=== PATIENT | male | born 1970 | race Caucasian/White ===

== ENCOUNTER 2024-04-20 13:02 | Emergency (ER) | payer MEDICAID, SELFPAY ==
[2024-04-20 13:19] VITALS: BP 177/107; PULSE 80; TEMP 36.8; O2SAT 98; BMI 27.5
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
[2024-04-20] MEDS: 0.9 % SODIUM CHLORIDE 1,000 ML 1000 ML IV (13:53)
[2024-04-20] MEDS: ONDANSETRON PF 4 MG/2 ML VIAL IV (13:55)
[2024-04-20] MEDS: METHOCARBAMOL 1,000 MG/10 ML VIAL 1000 MG IV (13:55)
[2024-04-20] MEDS: HYDROMORPHONE HCL 1 MG/ML CARTRIDGE IVP (13:55)
[2024-04-20 14:02] VITALS: BP 138/87; PULSE 80; O2SAT 96
[2024-04-20 14:06] LABS: Basophils Percent Auto 0.4 % (0.2-2.0); Eosinophils Absolute Auto 0.3 10^3/uL (0.0-0.7); Eosinophils Percent Auto 6.6 % (0.9-7.0); Hematocrit 42.3 % (42.0-54.0); Hemoglobin 13.9 g/dL (14.0-18.0); Immature Granulocytes Abs Auto 0.02 10^3/uL (0.00-0.03); Immature Granulocytes Pct Auto 0.4 % (0.0-0.5); Lymphocytes Percent Auto 20.9 % (20.5-60.0); Mean Corpuscular HGB Conc 32.9 g/dL (29.9-35.2); Mean Corpuscular Hemoglobin 29.8 pg (25.9-34.0); Mean Corpuscular Volume 90.8 fL (80.0-94.0); Mean Platelet Volume 9.9 fL (9.5-13.5); Monocytes Absolute Auto 0.3 10^3/uL (0.3-0.8); Neutrophils Absolute Auto 3.1 10^3/uL (1.4-6.5); Neutrophils Percent Auto 65.7 % (43.0-75.0); Platelet Count 173 10^3/uL (150-450); Red Blood Count 4.66 10^6/uL (4.70-6.10); Red Cell Distribution Width 14.3 % (11.0-15.0); White Blood Count 4.7 10^3/uL (4.0-11.0)
[2024-04-20 14:19] LABS: INR 0.98; Prothrombin Time 10.4 sec (9.0-11.6)
[2024-04-20 14:25] LABS: Alanine Aminotransferase 35 U/L (16-63); Albumin Level 3.5 g/dL (3.4-5.0); Alkaline Phosphatase 62 U/L (46-116); Anion Gap 12.2; Aspartate Amino Transferase 22 U/L (15-37); BUN Creatinine Ratio 19.4; Bilirubin Total 0.5 mg/dL (0.2-1.0); Calcium 8.6 mg/dL (8.5-10.1); Carbon Dioxide 25.6 mmol/L (21.0-32.0); Chloride 102 mmol/L (98-107); Estimated GFR (African America >60 (>=60); Estimated GFR (Non-African Ame >60 (>=60); Globulin 3.6 g/dL; Glucose 99 mg/dL (74-106); Potassium 3.8 mmol/L (3.5-5.1); Sodium 136 mmol/L (136-145); Total Protein 7.1 g/dL (6.4-8.2)
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
[2024-04-20 15:30] VITALS: BP 128/80; PULSE 76; O2SAT 97
== END 2024-04-20 15:35 | disposition home or self-care (01) ==
PROVIDERS: Physician Assistant; Emergency Provider Student in an Organized Health Care Education/Training Program; PCP Family Medicine
DX: R10.9 Unspecified abdominal pain (principal); S20.212A Contusion of left front wall of thorax, initial encounter; V19.9XXA Pedal cyclist (driver) (passenger) injured in unspecified traffic accident, initial encounter
CPT/HCPCS: 36415; 71260; 74177; 80053; 85025; 85610; 96374; 96375; 99285; J1170; J2405; J2800; Q9967

== ENCOUNTER 2024-06-27 14:37 | Outpatient (OUT) | payer MEDICAID, SELFPAY ==
--- NOTE | 2024-06-27 14:44 | XR_ITS ---
The [address] [address] Patient Name: CORNELIUS ROBERTS MRN: [id number] date: 1970 Sex: M Assigned Patient Location: LAB Current Patient Location: LAB Accession/Order Number: [id number] Exam Date: 06/27/2024 14:51 Report Date: 06/27/2024 15:03 At the request of: VANGEI BAEZ Procedure: XR chest 2V EXAM: XR chest 2V HISTORY: Cough, Abnormal Chest Sounds, Asthma COMPARISON: None. TECHNIQUE: Upright PA and lateral chest x-ray FINDINGS: The heart is not enlarged and the vasculature is not distended. No acute infiltrate, effusion or pneumothorax is identified. Mild flattening of the hemidiaphragms suggest COPD. The osseous structures are grossly intact. XR/XR chest 2V IMPRESSION: No apparent acute infiltrate or evidence of cardiac decompensation. Comparison with a previous study may be helpful in confirming the chronicity of these findings. Electronically authenticated by: MONA ESCAMILLA Date: 06/27/2024 15:03
--- OUTSIDE RECORDS SUMMARY | 2024-06-27 15:00 | XMS_ITS | CCD ---
Author Organization [facility] Care Team Providers Care Store Gift Wrap Associate Name Role Phone Kulwant OCHOA Primary Care Physician [phone] Sendy Murray I Unavailable Unavailable Kulwant Ochoa Primary Care Unavailable Ty Osborne Admitting Unavailab Peggy Nix Consulting Unavailable Ty Osborne Attending Unavailab Ashley Todd Consulting Unavailable Janae Arce Consulting Unavailable Savita Grove Consulting Unavailable Isabela High Consulting Unavailable Ashia Chadwick Consulting Unavailable Chaparrita Piper Consulting Unavailable Julián Singletary Consulting Unavailable Sendy Olivo Consulting Unavailable Vaishali Mei Consulting Unavailable Bart Jackson Consulting Unavailable Mitchell Stewart Consulting UnavailDonnie Mejia Consulting Unavailable Elizabeth Esposito Consulting Unavailable Renny Hernandez Consulting Unavailable Meenakshi Castro Consulting UnavailTarun Berg Consulting Unavailable Sridhar Warner Consulting Unavailable Donna Ledesma Consulting Unavailable Inessa Belcher Consulting Unavailable Iftikhar Mijares Consulting Unavailable Desmond Wiley Consulting Unavailable Shaggy Gupta Consulting Unavailable Ashley Nunez Consulting Unavailable Meng Humphries Consulting Unavailable Hernandez Vazquez Consulting Unavailab Aryan Neves Consulting Unavailable Ralf Rios Consulting Unavailable Manjula Hussein Consulting Unavailable Adis Pollard Consulting Unavailable Jaquelin Galicia Consulting Unavailable Gui Yang Consulting Unavailable Lalo Chacko Consulting Unavailable Clemencia Su Consulting Unavailable Seng Foster Consulting Unavailable Thelma Piedra Consulting Unavailable Rebeca George Consulting Unavailable Martha Flor Consulting Unavailable Robert Zazueta Consulting Unavailable Shashi Brennan Consulting Unavailable Bladimir Anaya Consulting Unavailable Delmar Escamilla Consulting Unavailable Regan Rios Consulting Unavailable Yoanna Huff Consulting Unavailable LLC, GENERIC Primary Care Physician UnavailLeandra Chaudhari Attending Unavailable Leandra Lancaster Admitting Unavailable Lion Yan Attending Unavailable Leandra Lancaster Attending Unavailable Allergies Allergy Classification Reported Allergen(s) Allergy Type Date of Onset Reaction(s) Facility (9 sources) Bee/Wasp/Ant venom; Translations: [Bee Stings] Drug allergy [facility] Medications Current Medications Medication Drug Class(es) Dates Sig (Normalized) Sig (Original) [id number] 200 actuat albuterol 0.09 mg/actuat metered dose inhaler (5 sources) beta2-Adrenergic Agonist Start: 06-01-2024 take 1 puff(s) by inhalation every four to six hours Albuterol Sulfate Active 2 PUFF INHALATION EVERY 4-6 HOURS 8.5 June 01, 2024 10:49am Start: 06-01-2024 End: 06-01-2024 Albuterol Sulfate Discontinu ed INHALATION June 01, 2024 12:00am June 01, 2024 10:50am Start: 04-06-2020 take 1 dose by inhal ation every six hours ProAir HFA 90 mcg/inh inhalation aerosol 2 puff(s), Inhalation, q6hr for wheezing, 1 EA, Refill(s) 3, [facility], 165, cm, 04/05/20 9:03:00 EDT, Height/Length Dosing, 77.1, kg, 04/05/20 9:03:00 EDT, Weight Dosing Start Date: 04/06/20 Status: Ordered Albuterol (Eqv-ProAir HFA) 90 mcg/inh inhalation aerosol (4 sources) Start: 08-04-2022 take 2 puff(s) by inhalation every six hours Albuterol (Eqv-ProAir HFA) 90 mcg/inh inhalation aerosol 2 puff(s), Inhalation, q6hr Shortness of breath or wheezing, 6.7 gm, Refill(s) 5, [facility], 165, cm, 08/04/22 9:32:00 EST, Height/Length Dosing, 72.4, kg, 08/04/22 9:32:00 EST, Weight Dosing Start Date: 08/04/22 Status: Ordered Albuterol (Eqv-Proventil HFA) 90 mcg/inh inhalation aerosol (4 sources) Start: 07-30-2021 take 2 puff(s) by inhalation every six hours Albuterol (Eqv-Proventil HFA) 90 mcg/inh inhalation aerosol = 2 puff(s), Inhalation, q6hr, # 6.7 gm, Refills(s) 0, Pharmacy: [facility], 165, cm, 07/30/21 11:09:00 EST, Height/Length Dosing, 73.2, kg, 07/30/21 11:09:00 EST, Weight Dosing Start Date: 07/30/21 Status: Ordered amoxicillin 500 mg oral capsule (1 source) Penicillin-class Antibacterial Start: 05-21-2023 take 1 capsule by mouth every twelve hours amoxicillin 500 mg Cap 500 mg = 1 cap(s), Oral, q12hr, # 20 cap(s), Refills(s) 0, Pharmacy: [facility], 162, cm, 05/21/23 12:44:00 EDT, Height/Length Dosing, 74, kg, 05/21/23 12:44:00 EDT, Weight Dosing Start Date: 05/21/23 Status: Ordered Azithromycin (1 source) Macrolide Antimicrobial Start: 06-01-2024 Azithromycin Active 0 PO daily 6 June 01, 2024 12:00am Take 2 on day 1 and then take 1 for the next 4 days (days 2-5) azithromycin 250 mg Tab 5-day Dose Pack (Z-Jordy) (2 sources) Start: 06-23-2024 End: 06-28-2024 azithromycin 250 mg Tab 5-day Dose Pack (Z-Jordy) = 1 packet(s), Oral, As Directed, as directed on package labeling, X 5 day(s), # 6 tab(s), Refills(s) 0, Pharmacy: [facility], 162, cm, 06/23/24 14:38:00 EST, Height/Length Dosing, 69, kg, 06/23/24 14:38:00 EST, Weight Dosing Start Date: 06/23/24 Stop Date: 06/28/24 Status: Ordered benzonatate 200 mg oral capsule (1 source) Non-narcotic Antitussive Start: 06-01-2024 take 200 mg by mouth three times daily Benzonatate Active 200 MG PO Three times daily 30 June 01, 2024 12:00am cyclobenzaprine hydrochloride 10 mg oral tablet (4 sources) Muscle Relaxant Start: 02-26-2021 take 1 tablet by mouth three times daily as needed for muscle spasms cyclobenzaprine 10 mg Tab 10 mg = 1 tab(s), Oral, TID, PRN for spasm, # 30 tab(s), Refills(s) 0, Pharmacy: [facility], 165, cm, 02/26/21 14:51:00 EDT, Height/Length Dosing, 73.2, kg, 02/26/21 14:51:00 EDT, Weight Dosing Start Date: 02/26/21 Status: Ordered hydroCHLOROthiazide / Lisinopril (6 sources) Thiazide Diuretic, Angiotensin Converting Enzyme Inhibitor Start: 08-04-2022 take 1 tablet by mouth once daily Prinzide 10 mg-12.5 mg oral tablet 1 tab(s), Oral, Daily, 90 tab(s), Refill(s) 3, [facility], 165, cm, 08/04/22 9:32:00 EST, Height/Length Dosing, 72.4, kg, 08/04/22 9:32:00 EST, Weight Dosing Start Date: 08/04/22 Status: Ordered Start: 06-30-2014 take 1 tablet by riccardo th once daily Prinzide 10 mg-12.5 mg oral tablet 1 tab(s), Oral, Daily, Refill(s) 0, diuretic/water pill Start Date: 06/30/14 Status: Ordered Lidocaine 2% Viscous (1 source) Start: 05-21-2023 apply 0.1 g topically every four hours Lidocaine 2% Viscous 0.1 gm, 5 mL, Topical, q4hr, 100 mL, Refill(s) 0, [facility], 162, cm, 05/21/23 12:44:00 EDT, Height/Length Dosing, 74, kg, 05/21/23 12:44:00 EDT, Weight Dosing Start Date: 05/21/23 Status: Ordered methylPREDNISolone 4 mg oral tablet (2 sources) Corticosteroid Start: 08-04-2022 End: 08-10-2022 Medrol 4 mg Tab = 1 packet(s), Oral, As Directed, as directed on package labeling, X 6 day(s), # 21 tab(s), Refills(s) 0, Pharmacy: [facility], 165, cm, 08/04/22 9:32:00 EST, Height/Length Dosing, 72.4, kg, 08/04/22 9:32:00 EST, Weight Dosing Start Date: 08/04/22 Stop Date: 08/10/22 Status: Ordered Start: 11-18-2021 End: 11-24-2021 Medrol 4 mg Tab = 1 packet(s ), Oral, As Directed, as directed on package labeling, X 6 day(s), # 21 tab(s), Refills(s) 0, Pharmacy: [facility], 165, cm, 11/18/21 14:22:00 EDT, Height/Length Dosing, 73.7, kg, 11/18/21 14:22:00 EDT, Weight Dosing Start Date: 11/18/21 Stop Date: 11/24/21 Status: Ordered omeprazole 40 mg delayed release oral capsule (3 sources) Proton Pump Inhibitor Start: 07-30-2020 take 1 capsule by mouth twice daily omeprazole 40 mg Cap-DR 40 mg = 1 cap(s), Oral, BID, # 60 cap(s), Refills(s) 2, Pharmacy: [facility], 165, cm, 07/30/20 12:46:00 EST, Height/Length Dosing, 75.8, kg, 07/30/20 12:46:00 EST, Weight Dosing Start Date: 07/30/20 Status: Ordered omeprazole 40 mg Cap-DR (1 source) Start: 07-30-2020 take 1 capsule by mouth twice daily omeprazole 40 mg Cap-DR 40 mg = 1 cap(s), Oral, BID, # 60 cap(s), Refills(s) 2, Pharmacy: [facility], 165, cm, 07/30/20 12:46:00 EST, Height/Length Dosing, 75.8, kg, 07/30/20 12:46:00 EST, Weight Dosing Start Date: 07/30/20 Status: Ordered predniSONE 50 mg oral tablet (3 sources) Start: 06-23-2024 End: 06-28-2024 take 1 tablet by mouth once daily at mealtime predniSONE 50 mg Tab 50 mg = 1 tab(s), Oral, Daily, with food or milk, X 5 day(s), # 5 tab(s), Refills(s) 0, Pharmacy: [facility], 162, cm, 06/23/24 14:38:00 EST, Height/Length Dosing, 69, kg, 06/23/24 14:38:00 EST, Weight Dosing Start Date: 06/23/24 Stop Date: 06/28/24 Status: Ordered Start: 06-01-2024 take 0.5 tablet by m outh once daily Prednisone Active 10 MG PO daily June 01, 2024 12:00am Take 40 mg for 2 days, 30 mg for 2 days, 20 mg for 2 days, 10 mg for 2 days, 1/2 tablet for 2 days Ventolin HFA 90 mcg/inh Aerosol-Adpt (2 sources) Start: 06-23-2024 take 2 puff(s) by inhalation once for wheezing Ventolin HFA 90 mcg/inh Aerosol-Adpt 2 puff(s), Inhalation, Once for wheezing, 18 gram, Refill(s) 0, [facility], 162, cm, 06/23/24 14:38:00 EST, Height/Length Dosing, 69, kg, 06/23/24 14:38:00 EST, Weight Dosing Start Date: 06/23/24 Status: Ordered Completed/Discontinued Medications Medication Drug Class(es) Dates Sig (Normalized) Sig (Original) doxepin hydrochloride 10 mg oral capsule (1 source) Tricyclic Antidepressant Start: 10-17-2023 End: 06-01-2024 take 10 mg by mouth once daily at bedtime Doxepin Discontinued 10 MG PO Daily at bedtime 15 October 17, 2023 1:00am June 01, 2024 10:22am doxycycline hyclate 100 mg oral tablet (7 sources) Tetracycline-class Drug Start: 10-17-2023 End: 06-01-2024 take 100 mg by mouth twice daily Doxycycline Hyclate Discontinued 100 MG PO Twice daily 07 21October 17, 2023 1:00am June 01, 2024 10:22am Start: 08-04-2022 take 1 capsule by [facility] twice daily doxycycline hyclate 100 mg Cap 100 mg = 1 cap(s), Oral, BID, # 20 cap(s), Refills(s) 0, Pharmacy: [facility], 165, cm, 08/04/22 9:32:00 EST, Height/Length Dosing, 72.4, kg, 08/04/22 9:32:00 EST, Weight Dosing Start Date: 08/04/22 Status: Ordered Start: 11-18-2021 take 1 capsule by [facility] twice daily doxycycline hyclate 100 mg Cap 100 mg = 1 cap(s), Oral, BID, # 20 cap(s), Refills(s) 0, Pharmacy: [facility], 165, cm, 11/18/21 14:22:00 EDT, Height/Length Dosing, 73.7, kg, 11/18/21 14:22:00 EDT, Weight Dosing Start Date: 11/18/21 Status: Ordered escitalopram 10 mg oral tablet (1 source) Serotonin Reuptake Inhibitor Start: 10-17-2023 End: 06-01-2024 take 10 mg by mouth once daily Escitalopram Oxalate Discontinued 10 MG PO Daily October 17, 2023 1:00am June 01, 2024 10:23am fenofibrate 145 mg oral tablet (1 source) Peroxisome Proliferator Receptor alpha Agonist Start: 10-17-2023 End: 06-01-2024 take 145 mg by mouth once daily in the evening Fenofibrate Nanocrystallized Discontinued 145 MG PO Every evening October 17, 2023 1:00am June 01, 2024 10:23am folic acid 1 mg oral tablet (1 source) Start: 10-17-2023 End: 06-01-2024 take 1 mg by mouth once daily Folic Acid Discontinued 1 MG PO Daily October 17, 2023 1:00am June 01, 2024 10:23am ProAir HFA 90 mcg/inh inhalation aerosol (1 source) Start: 04-06-2020 take 1 dose by inhalation every six hours ProAir HFA 90 mcg/inh inhalation aerosol 2 puff(s), Inhalation, q6hr for wheezing, 1 EA, Refill(s) 3, [facility], 165, cm, 04/05/20 9:03:00 EDT, Height/Length Dosing, 77.1, kg, 04/05/20 9:03:00 EDT, Weight Dosing Start Date: 04/06/20 Status: Ordered rOPINIRole 0.5 mg oral tablet (1 source) Nonergot Dopamine Agonist Start: 10-17-2023 End: 06-01-2024 take 0.5 mg by mouth twice daily Ropinirole Discontinued 0.5 MG PO Twice daily October 17, 2023 1:00am June 01, 2024 10:23am thiamine 100 mg oral tablet (1 source) Start: 10-17-2023 End: 06-01-2024 take 100 mg by mouth twice daily Thiamine Hcl (Vitamin B1) Discontinued 100 MG PO Twice daily October 17, 2023 1:00am June 01, 2024 10:23am Problems Active Problems Problem Classification Problem Date Documented Date Episodic/Chronic Alcohol-related disorders (2 sources) Alcohol abuse, uncomplicated; Translations: [Alcohol abuse] Onset: 10-12-2023 10-26-2023 Chronic Anxiety disorders (2 sources) Generalized anxiety disorder; Translations: [Generalized anxiety disorder] Onset: 10-12-2023 10-26-2023 Chronic Asthma (13 sources) Asthma; Translations: [Exacerbation of asthma] Onset: 06-23-2024 10-27-2013 Chronic Disorders of lipid metabolism (2 sources) Pure hyperglyceridemia; Translations: [Hypertriglyceridemia ] Onset: 10-12-2023 10-26-2023 Chronic Essential hypertension (9 sources) Hypertensive disorder; Translations: [Essential hypertension] Onset: 08-04-2022 05-15-2011 Chronic Fever of unknown origin (1 source) Fever; Translations: [Fever, unspecified] Onset: 06-23-2024 Episodic Headache; including migraine (8 sources) Tension-type headache 02-09-2020 Chronic Mood disorders (2 sources) Major depressive disorder, recurrent severe without psychotic features; Translations: [Severe recurrent major depression without psychotic features] Onset: 10-12-2023 10-26-2023 Chronic Mood disorders (1 source) Mood disorders; Translations: [Depression, unspecified] Onset: 10-12-2023 Open wounds of extremities (2 sources) Laceration without foreign body of left wrist, initial encounter; Translations: [Self inflicted lacerations to wrist] Onset: 10-12-2023 10-26-2023 Episodic Open wounds of extremities (2 sources) Laceration without foreign body of right wrist, initial encounter; Translations: [Self inflicted lacerations to wrist] Onset: 10-12-2023 10-26-2023 Episodic Other connective tissue disease (8 sources) Disorder of rotator cuff 11-06-2015 Episodic Other injuries and conditions due to external causes (1 source) Injury of upper arm; Translations: [Other injury of muscle, fascia and tendon of other parts of biceps, right arm, initial encounter] Onset: 02-09-2022 Episodic Other injuries and conditions due to external causes (7 sources) Muscle and tendon injury 02-09-2022 Episodic Other nutritional; endocrine; and metabolic disorders (1 source) Overweight in adulthood with body mass index of 25 or more but less than 30; Translations: [Body mass index (BMI) 26.0-26.9, adult] Onset: 02-09-2022 Episodic Other upper respiratory infections (3 sources) Acute maxillary sinusitis; Translations: [Acute maxillary sinusitis, unspecified] Onset: 06-23-2024 06-01-2024 Episodic Pneumonia (except that caused by tuberculosis or sexually transmitted disease) (10 sources) Pneumonia; Translations: [Pneumonia, unspecified organism] Onset: 11-18-2021 Episodic Residual codes; unclassified (1 source) Tobacco user; Translations: [Tobacco use] Onset: 02-09-2022 Episodic Spondylosis; intervertebral disc disorders; other back problems (16 sources) Degeneration of intervertebral disc; Translations: [Lumbar spondylosis with myelopathy] 11-06-2015 Chronic Substance-related disorders (5 sources) Smoker; Translations: [Other psychoactive substance abuse, uncomplicated] Onset: 10-12-2023 10-11-2023 Chronic Comment on above: Added secondary to d ocumentation in Social History. Suicide and intentional self-inflicted injury (2 sources) Intentional self-harm by unspecified sharp object, initial encounter; Translations: [Intentionally harming self (event)] Onset: 10-11-2023 Episodic Past or Other Problems Problem Classification Problem Date Documented Da te Episodic/Chronic Unclassified (1 source) Exposure to 2019 novel coronavirus; Translations: [Contact with and (suspected) exposure to COVID19] Results Test Name Value Interpretation Reference Range Facility Ambulatory Visit Summaryon 1 08-23-2023 Ambulatory Visit Summary Ambulatory Visit Summary CORNELIUS ROBERTS :1970 Visit Date:06/23/2024 Ambulatory Visit Instructions Your Diagnosis Cough with fever Wheezing on inspiration Acute pharyngitis Exacerbation of asthma Your Care Team Attending Physician - Tnony SALAZAR, Bing Primary Care Physician - MAGALIS, GENERIC This Is Your Medications List albuterol (Albuterol (Eqv-ProAir HFA) 90 mcg/inh inhalation aerosol) albuterol (Ventolin HFA 90 mcg/inh Aerosol-Adpt) azithromycin (azithromycin 250 mg Tab 5-day Dose Pack (Z-Jordy)) predniSONE (predniSONE 50 mg Tab) Procedures Performed Injection of facet joint using fluoroscopic guidance (10/09/2015), Appendectomy, groin surgey as a child, kidney surgery as a child. Discharge Vitals Temperature (Tympanic) 37 ???C Heart Rate (Peripheral) 104 Blood Pressure 120/74 Height 162 cm Height 64 in Weight 69 kg Weight 151.8 lb BMI 26.29 Medications What How Much When Why Instructions New azithromycin (azithromycin 250 mg Tab 5-day Dose Pack (Z-Jodry)) 1 Packets By Mouth As Directed Cough with fever Wheezing on inspiration Acute pharyngitis Exacerbation of asthma Duration: 5 Days as directed on package labeling Pickup at [facility] New predniSONE (predniSONE 50 mg Tab) 1 Tablets By Mouth Every day Cough with fever Wheezing on inspiration Acute pharyngitis Exacerbation of asthma Duration: 5 Days with food or milk Pickup at [facility] Changed albuterol (Albuterol (Eqv-ProAir HFA) 90 mcg/ inh inhalation aerosol) 2 Puffs Inhalation Every 6 hours as needed for Shortness of breath or wheezing Changed albuterol (Ventolin HFA 90 mcg/ inh Aerosol-Adpt) 2 Puffs Inhalation Once as needed for for wheezing Cough with fever Wheezing on inspiration Acute pharyngitis Exacerbation of asthma Pickup at [facility] Pharmacy Information [facility]: [address] [place], [place] [id number] [phone] Medications and Immunizations Administered Given DuoNeb 2.5 mg-0.5 mg/3 mL Soln-Inh, 3 mL, NEB. For: Wheezing on inspiration Allergies Bee Stings Problems Ongoing - Any problem that you are currently receiving treatment for. 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 DDD (degenerative disc disease) Disorder of rotator cuff Patient Survey You may receive a survey via text or e-mail asking about your office visit. Please share your experience with us by completing your survey. We appreciate your feedback and thank you for choosing us for your care. [facility] Family Medicine Office/Clini c Noteon 06-23-2024 Family Medicine Office/Clinic Note Family Medicine Office/Clinic Note Chief Complaint cough, congestion HPI Staff 53 year old male presents with cough, chills, body aches, sinus congestion, sore throat, diarrhea for the past 2-3 weeks mucinex, ibuprofen, dayquil, inhaler History of Present Illness I have reviewed and verified the staff HPI to be accurate for this encounter. Portions of this record have been created with voice recognition software. Occasional wrong-word or ???[id number]??? substitutions may have occurred due to the inherent limitations of voice recognition software. 3-year-old male presents with complaints of cough, chills, body aches, sinus congestion, sore throat and some diarrhea for the past 2 to 3 weeks. He reports he did COVID test at home that were negative. His most bothersome symptoms are sore throat, wheezing, chills and cough that do not seem to be improving. He does use an albuterol inhaler that he needs refilled. He has been using ibuprofen, Mucinex, DayQuil and his inhaler for his symptoms without much relief. He is agreeable to strep testing and chest x-ray today. Review of Systems PHQ Score Initial Depression Screen Score: 0 SCORE ROS negative unless otherwise stated in HPI. Physical Exam Vitals & Measurements T: 37 ???C(Tympanic) HR: 104(Peripheral) BP: 120/74 SpO2: 97% HT: 64 in HT: 162 cm WT: 69 kg WT: 151.8 lb BMI: 26.29 General: Well developed, well nourished, in no acute distress ill-appearing not toxic Eyes: not assessed Ears: No deformity or lesion of external ear. Canals and TM appear normal bilaterally. TM???s intact, not inflamed, with normal light reflex. Hearing grossly normal to conversational speech Nose: mild nasal mucosa inflammation and edema Mouth: Mucous membranes moist. Normal oropharynx, and posterior pharynx injected without lesions or exudates. Tongue normal tonsils 2+ Neck: no adenopathy Lungs: Normal respiratory effort however wheezes heard throughout along with moist cough respiratory rate 18 Cardio: regular rate and rhythm, no murmur tachycardic at 104 Abdomen: not assessed Musculoskeletal: not assessed Extremity: not assessed Neurologic: Grossly normal Skin: No rashes, ulcerations, or suspicious lesions Mental Status: Alert and oriented x3. Normal mood and affect Assessment/Plan Based on history and symptoms and how he presents today I would like to do a rapid strep due to his complaint of severe sore throat that has been lasting for almost 2 weeks. We will also do a chest x-ray due to the level of wheezing and cough he has had, history of asthma. Rapid strep was negative and we will send strep screen culture per protocol. Chest x-ray was also negative for pneumonia but I will treat his exacerbation of asthma with azithromycin Z-Jordy, prednisone 50 mg daily x 5 days as well as refilling his albuterol inhaler. He states he is in the process of finding another PCP so we will have our front and staff help him with finding a new PCP as he will need to have a primary care physician to monitor his chronic conditions. Patient verbalized understanding and agreement with this plan. 1. Exacerbation of asthma (J45.901: Unspecified asthma with (acute) exacerbation) Please follow-up with your primary care provider in 3 to 5 days. Contact their office tomorrow morning to schedule follow-up appointment. You were seen and evaluated today in regards to cough and wheezing. You had wheezing on exam today. Discussed with you in regards to treatment for bronchitis with azithromycin 500 mg p.o. today followed by 250 mg for the next 4 days. Prednisone, steroid 50 mg daily x 5 days take as directed. Continue albuterol inhaler, 2 puffs every 4-6 hours as needed for wheezing. Cough, and viral symptoms may last anywhere form 7-14 days, or linger longer. Continue to monitor. If you develop high spiking fever, shortness of breath ,or chest pain, you should go to the emergency department for reevaluation. You may return if needed. Ordered: albuterol, 2 puff(s), Inhalation, Once for wheezing, 18 gram, Refill(s) 0, [facility], 162, cm, 06/23/24 14:38:00 EST, Height/Length Dosing, 69, kg, 06/23/24 14:38:00 EST, Weight Dosing azithromycin, = 1 packet(s), Oral, As Directed, as directed on package labeling, X 5 day(s), # 6 tab(s), Refills(s) 0, Pharmacy: [facility], 162, cm, 06/23/24 14:38:00 EST, Height/Length Dosing, 69, kg, 06/23/24 14:38:00 EST, Weight Dosing predniSONE, 50 mg = 1 tab(s), Oral, Daily, with food or milk, X 5 day(s), # 5 tab(s), Refills(s) 0, Pharmacy: [facility], 162, cm, 06/23/24 14:38:00 EST, Height/Length Dosing, 69, kg, 06/23/24 14:38:00 EST, Weight Dosing 2. Acute pharyngitis (J02.9: Acute pharyngitis, unspecified) Rapid strep -. Given exam will send strep cx to confirm. No news is good news, if you do not hear from us, strep culture was Negative. If any GAS growth, will rx appropriate antibiotic and notify you. Discussed otherwise consistent with viral illn (more content not included)... [facility] Comment on above: Result Comment: Elec tronically Signed By: Tonny SALAZAR, Bing\.br\Date and Time Signed: 06/23/24 20:41 EST Patient Letter FTon 2023 Patient Letter FT Patient Letter [facility] [address], [place] [address] [id number] June 23, 2024 [place] [id number] : 1970 Please excuse CORNELIUS ROBERTS from work . Date and/or Time of Absence: From: 06/23/24 To: 06/23/24 May return to work on: 06/24/24 if fever free without use of fever reducing medication and has taken 2 doses of antibiotics. Restrictions: None Comments: Please excuse due to an acute illness. Provider Signature: MARTIN Aguilar Nurse Practitioner [facility] [address] [place] [address] [facility] XR Chest 2 [facility] XR Chest 2 Views Exam Date/Time: 06/23/2024 15:06 EST Reason for Exam: Cough Report IMPRESSION: NO EVIDENCE OF ACTIVE CARDIOPULMONARY DISEASE. EXAM: XR Chest 2 Views DATE: 06/23/2024 3:01 PM CLINICAL HISTORY: Cough. COMPARISON: None available TECHNIQUE: Upright PA and lateral radiographs of the chest were obtained. FINDINGS: There is no significant pulmonary infiltrate, cardiomegaly, pleural effusion, vascular congestion, pneumothorax, or displaced fractures identified. Ordering Provider: Leandra Lancaster FINAL REPORT Dictated: 06/23/2024 3:14 pm Sabas De León MD Signed (Electronic Signature): 06/23/2024 3:14 pm Signed by: Sabas De León MD Transcribed by: URBANO Technologist: SALAZAR Technical Comments Radiation Dose: Ka,r in mGy = na DAP = na [facility] No Panel InformationOrdered By: Eleanor Koehler on 06-01-2024 Quick Strep (POC) [facility] EMS Documentationon 10-18-19 EMS Documentation Please click on link to see report [facility] Comment on above: Result Comment: Miss ing Attachment - attachment exceeds size limitation [id number] Can be viewed in source system Triglycerideson 10-16-2023 Triglyceride [Mass/Vol] 159 mg/dL High 35-149 [facility] Comment on above: Result Comment: TRIG ATP III CLASSIFICATION TRIG less than 150 mg/dL Normal TRIG 150-199 mg/dL Borderline high TRIG 200-500 mg/dL High TRIG greater than 500 mg/dL Very high Standard traceable to the Center for Disease Conrtrol and Prevention (CDC) test method. PERFORMED BY: [place] [address] PATHOLOGIST IT SENIOR ANALYST VONNIE CHARLES M.D. Performed By: #### T RIG #### [place] [address] [place] A1C with Estimated Average G luon 10-12-2023 Glucose [Mass/Vol] 105 mg/dL Normal [facility] Comment on above: Order Comment: Comme nt ok to use previously drawn blood Result Comment: PERF ORMED BY: [place] [address] PATHOLOGIST IT SENIOR ANALYST VONNIE CHARLES M.D. Performed By: #### A 1C [facility] eA #### [address] HbA1c (Bld) [Mass fraction] 5.3 % Normal 4.3-5.6 [facility] Comment on above: Order Comment: Comme nt ok to use previously drawn blood Result Comment: Incr eased risk for diabetes: 5.7 - 6.4 diabetes: >6.4 glycemic control for adults with diabetes: <7.0 Performed By: #### A 1C [facility] eA #### [place] [address] [place] ECG 12 lead ECGon 10-12-2023 ECG 12 lead ECG [facility] [place] [address] Electrocardiograph Report Signed Patient: Cornelius Rboerts MR#: [id number] : 1970 Acct:[id number] Age/Sex: 52 / M ADM Date: 10/12/23 Loc: Room: 2V2073-3 Type: ADM IN Attending Dr: Ty Osborne MD Ordering Provider: Ty Osborne MD Date of Service: 10/12/23 ECG/ECG 12 lead ECG: use of antipsychotics Copies to: Test Reason : Blood Pressure : / mmHG Vent. Rate : 104 BPM Atrial Rate : 104 BPM P-R Int : 140 ms QRS Dur : 084 ms QT Int : 326 ms P-R-T Axes : 069 064 081 degrees QTc Int : 428 ms Sinus tachycardia Nonspecific ST and T wave abnormality Abnormal ECG No previous ECGs available Confirmed by GEOVANNA OLIVEIRA MD, FACC ([id number]) on 10/12/2023 3:41:18 PM Referred By: Electronically Signed By:GEOVANNA OLIVEIRA MD, FACC Transcribed By: MUS Signed By Geovanna Oliveira MD, FACC 10/12/23 1541 [facility] ED Clinical Summaryon 2023 ED Clinical Summary (Inserted Image. Pia ble to display) [place] [address] ED Clinical Summary Person Information Name: CORNELIUS ROBERTS [place] Age: 52 Years : 1970 Sex: Male Language: Yemeni PCP: Kulwant OCHOA DO Marital Status: Single Visit Id: Visit Reason: Psychiatric problem; Trauma - major; Suicidal ideation; Multiple lacerations; SI Speciality: Acuity: 2 Enc Type: Emergency Med Service: Emergency Arrival: 10/11/2023 19:13:19 Discharge: 10/12/2023 02:05:19 LOS: 000 06:52 Checkin: 10/11/2023 19:13:19 Checkout: 10/12/2023 02:05:19 Dispo Type: [facility] EVENTS: Event Name Event Status Request Date/Time Start Date/Time Complete Date/Time Arrive Complete 10/11/2023 19:13:19 10/11/2023 19:13:19 10/11/2023 19:13:19 Document Home Meds Request 10/11/2023 19:13:19 Triage Complete 10/11/2023 19:13:19 10/11/2023 19:22:36 10/11/2023 19:22:36 Bed Assign Complete 10/11/2023 19:16:51 10/11/2023 19:16:51 10/11/2023 19:16:51 Dr Exam Complete 10/11/2023 19:16:51 10/11/2023 19:30:41 10/11/2023 19:30:41 RN Exam Complete 10/11/2023 19:16:51 10/11/2023 19:39:05 10/11/2023 19:39:05 Patient Care Complete 10/11/2023 19:18:53 10/11/2023 22:48:50 Trauma III Request 10/11/2023 19:20:47 EKG Complete 10/11/2023 19:22:50 10/11/2023 19:24:01 Registration Complete 10/11/2023 19:30:41 10/11/2023 20:47:20 10/11/2023 20:47:20 Consult Request 10/11/2023 19:31:17 Pending Labs Complete 10/11/2023 19:31:17 10/11/2023 23:01:03 Lab Complete 10/11/2023 19:31:17 10/11/2023 23:01:03 Urine Collect Complete 10/11/2023 19:31:17 10/11/2023 23:01:03 Patient Care Request 10/11/2023 19:31:17 Trauma III Request 10/11/2023 19:45:51 Pending Labs Complete 10/11/2023 19:53:00 10/11/2023 19:53:00 10/11/2023 20:14:18 Lab Complete 10/11/2023 19:53:00 10/11/2023 19:53:00 10/11/2023 20:14:18 Pending Labs Complete 10/11/2023 19:54:24 10/11/2023 19:54:24 10/11/2023 20:27:21 Blood Collect Start 10/11/2023 19:54:24 10/11/2023 19:54:24 Possible SIRS Request 10/11/2023 20:10:23 Pending Labs Complete 10/11/2023 20:19:08 10/11/2023 22:21:42 Lab Complete 10/11/2023 20:19:08 10/11/2023 22:21:42 Urine Collect Complete 10/11/2023 20:19:08 10/11/2023 22:21:42 Pending Labs Complete 10/11/2023 20:24:53 10/11/2023 20:24:53 10/11/2023 21:11:56 Lab Complete 10/11/2023 20:24:53 10/11/2023 20:24:53 10/11/2023 21:11:56 Reg Complete Request 10/11/2023 20:47:20 Reg Bed Request Complete 10/11/2023 20:47:20 10/11/2023 20:47:20 10/11/2023 20:47:20 Pending Labs Complete 10/11/2023 20:55:20 10/11/2023 20:55:20 10/11/2023 20:55:21 Pending Labs Complete 10/11/2023 20:56:19 10/11/2023 20:56:19 10/11/2023 20:56:20 Meds Admin Complete 10/11/2023 21:12:58 10/11/2023 21:44:51 Dr Exam Complete 10/11/2023 21:54:05 10/11/2023 21:54:05 10/11/2023 21:54:05 Registration Complete 10/11/2023 21:54:05 10/11/2023 22:16:53 10/11/2023 22:16:53 Meds Admin Complete 10/11/2023 22:46:24 10/11/2023 23:41:27 Meds Admin Request 10/11/2023 23:02:55 Discharge Complete 10/12/2023 02:05:29 10/12/2023 02:05:29 10/12/2023 02:05:29 Transfer Complete 10/12/2023 02:05:29 10/12/2023 02:05:29 10/12/2023 02:05:29 ADDRESS: [address] [place], [place] [address] [id number] PHYS DOC NOTES: MEDICAL INFORMATION: Prescriptions Given: Medications to Continue with No Changes Other Medications albuterol (Albuterol (Eqv-ProAir HFA) 90 mcg/inh inhalation aerosol) 2 Puffs Inhalation every 6 hours as needed Shortness of breath or wheezing. Refills: 5. amoxicillin (amoxicillin 500 mg Cap) 1 Capsules By Mouth every 12 hours. Refills: 0. doxycycline (doxycycline hyclate 100 mg Cap) 1 Capsules By Mouth 2 times a day. Refills: 0. hydrochlorothiazide-lisino pril (Prinzide 10 mg-12.5 mg oral tablet) 1 Tablets By Mouth every day. Refills: 3. lidocaine topical (Lidocaine 2% Viscous) 5 Milliliter Topical every 4 hours. Refills: 0. PATIENT EDUCATION INFORMATION: Instructions: Follow up: DIAGNOSIS: 1:Suicide attempt by cutting of wrist [facility] ED Note-Nursingon 10-12-2023 ED Note-Nursing tDap was given 10/11 at 2338 the med would not sign/verify. I am charting the administration in a note per pharmacy's instructions. Administered IM Left deltoid Lot: [id number] exp: 12/16/2025 mftr : glaxoklinesmith [facility] ED Note-Physicianon 10-12-19 24 ED Note-Physician Basic Information Time Seen: Shanika Griffin PA-C 10/11/2023 19:30 Chief Complaint pt presents to the ED via EMS with multiple self-inlficted lacerations throughout body. Pt states everything is going wrong History of Present Illness 52-year-old male presents by landon for multiple forearm lacerations as he attempted suicide. Friends are in the room and states that he texted him suicidal text messages to come over and get his cat and they called for a welfare check and landon found him on the floor with a large amount of blood. Patient states that he does not feel like anyone cares about him and his back has been hurting. He did quit his job and started selling belongings. Denies HI. Denies alcohol or drug use. Review of Systems Review of systems negative unless otherwise stated in HPI Physical Exam Vitals & Measurements T: 37.0 ?C(Oral) HR: 121(Monitored) RR: 14 BP: 136/86 SpO2: 99% HT: 162.56 cm WT: 69 kg BMI: 26.11 GENERAL: ALERT, NO ACUTE DISTRESS, talking in full and complete sentences SKIN: WARM, DRY, INTACT; NO CYANOSIS, NO RASH, 8 horizontal lacerations measuring about 2 cm to the left forearm with the largest at 10 cm, horizontal 3 and 4 cm lacerations to the right forearm HEAD: NORMOCEPHALIC, ATRAUMATIC EYE: PERRL, EOMI, NORMAL CONJUNCTIVA, NO DISCHARGE NOSE: NARES PATENT MOUTH: ORAL MUCOSA MOIST THROAT: NO STRIDOR NECK: SUPPLE, TRACHEA MIDLINE, FROM RESPIRATORY: NON-LABORED RESPIRATIONS EXTREMITIES: FROM X 4 NEUROLOGICAL: A&OX3 PSYCHIATRIC: COOPERATIVE, APPROPRIATE MOOD AND AFFECT Procedure Date/Time: Correct patient:Confirmed Correct procedure: Confirmed Correct side: Confirmed Correct site: Confirmed Consent by: Patient Consent type: Emergent Pre-op diagnosis: Post-op diagnosis: Description (rpt) Location: Other Shape: linear Depth: superficial Details: clean NV/tendon exam: intact Anesthesia: 40_ml 1% lido Preparation: sterile field Irrigation: copious, with _ ml saline Debridement: none Skin closure: Nylon sutures, # 60_sutures, Hemostasis: intact Complexity: single layer Post procedure exam: Circulation, motor, and sensory intact Patient tolerated: well Complications: None Performed by (rpt): Self Total time:65 _ min Notes: Medical Decision Making No evidence of tendon laceration. No significant abnormalities. UDS positive for cannabis and opiates. OARRS is negative and not sure if EMS gave him any medications in squad that would test positive for opiates. UA negative. Sutures placed. Bacitracin applied. Tetanus updated. Patient given Toradol for his his chronic back pain. Due to shift change, patient awaiting placement and case discussed with Dr. Yan. Assessment/Plan 1. Suicide attempt by cutting of wrist (X78.9XXA: Intentional self-harm by unspecified sharp object, initial encounter) Orders: bacitracin topical, 10 bruno, Ointment, Topical, Once, Stop date 10/11/23 22:46:00 EST, STAT, Start date 10/11/23 22:46:00 EST Acetaminophen Level BB Draw & Hold CBC w/ Auto Diff Communication Order Comprehensive Metabolic Panel Consult to Mental Health Drug Screen Urine eGFR Ethanol Level Extra Blue Tube Extra SST Tube Salicylate Level Medications Administered Given [id number] [F], 10 bruno, Topical ketorolac 30 mg/mL Inj 1 mL, 30 mg, IV Disposition Plan Patient Discharge Condition Guarded Discharge Disposition Transfer to S. Discharge Prescription List Prescriptions No active prescription medications Follow-up No qualifying data available Attestation Patient was treated and evaluated by the Physician Shoe Lay Out Planner. The attending physician was in the Emergency Department at all times and supervised care. The case was discussed with the attending physician and diagnostics were reviewed as needed. 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 Medications Inpatient tetanus/diphtheria/pertuss is, acel (Tdap) 5 units-2.5 units-18.5 mcg/0.5 mL intramuscular suspensio, 0.5 mL, Intramuscular-Immunization , Once Home Albuterol (Eqv-ProAir HFA) 90 mcg/inh inhalation aerosol, 2 puff(s), Inhalation, q6hr, PRN, 5 refills, Not taking amoxicillin 500 mg Cap, 500 mg= 1 cap(s), Oral, q12hr doxycycline hyclate 100 mg Cap, 100 mg= 1 cap(s), Oral, BID, Not taking Lidocaine 2% Viscous, 0.1 gm= 5 mL, Topical, q4hr Prinzide 10 mg-12.5 mg oral tablet, 1 tab(s), Oral, Daily, 3 refills, Not taking Allergies Bee Stings Social History Alcohol Current, Beer, 1- (more content not included)... [facility] Comment on above: Result Comment: Elec tronically Signed By: Shanika Griffin PA-C\.br\Date and Time Signed: 10/11/23 23:46 EST\.br\Electronically Co-Signed By: Lion Yan MD\.br\Date and Time Co-Signed: 10/12/23 22:08 EST ED Patient Education Noteon 10-12-2023 ED Patient Education Note [facility] ED Patient Summaryon 024 ED Patient Summary (Inserted Image. Pia ble to display) [address] [address] Patient Discharge Instructions Person Information Name: CORNELIUS ROBERTS Age: 52 Years Arrival Date: 10/11/2023 19:13:19 Discharge Diagnosis: 1:Suicide attempt by cutting of wrist Primary Care Physician: Kulwant OCHOA DO Provider Information Primary Provider: Lion Yan MD Advanced Flight Kitchen Manager:None The exam and treatment you received in the Emergency Department were for an urgent problem and are not intended as complete care. It is important that you follow up with a doctor, nurse practitioner, or physician?s patent legal assistant for ongoing care. If your symptoms become worse or you do not improve as expected and you are unable to reach your usual health care provider, you should return to the Emergency Department. We are available 24 hours a day. CORNELIUS ROBERTS has been given the following list of patient education materials, prescriptions and follow-up instructions: Follow-up Instructions: In the event that this physician does not participate in your insurance network, please consult with your insurance company to find a nearby participating provider. Patient Education Materials: A MESSAGE TO ALL PATIENTS REGARDING OPIOIDS PRESCRIPTION OPIOIDS: WHAT YOU NEED TO KNOW Prescription opioids can be used to help relieve epvdhasy-hx-qvhayi pain and are often prescribed following a surgery or injury, or for certain health conditions. These medications can be an important part of the treatment but also come with serious risks. It is important to work with your healthcare provider to make sure you are getting the safest, most effective care. WHAT ARE THE RISKS AND SIDE EFFECTS OF OPIOID USE? Prescription opioids carry serious risks of addiction and overdose, especially with prolonged use. An opioid overdose, often marked by slowed breathing, can cause sudden . The use of prescription opioids can have a number of side effects as well, even when taken as directed: ? Tolerance?meaning you might need to take more of the medication for the same pain relief ? Physical dependence?meaning you have symptoms of withdrawal when a medication is stopped ? Increased sensitivity to pain ? Constipation ? Nausea, vomiting, and dry mouth ? Sleepiness and dizziness ? Confusion ? Depression ? Low levels of testosterone that can result in lower sex drive, energy, and strength ? Itching and sweating RISKS ARE GREATER WITH: ? History of drug misuse, substance use disorder, or overdose ? Mental health conditions (such as depression or anxiety) ? Sleep apnea ? Older age (65 years and older) ? Avoid alcohol while taking prescription opioids. Also, unless specifically advised by your health care provider, medications to avoid include: ? Benzodiazepines (such as Xanax or Valium) ? Muscle relaxants (such as Soma or Flexeril) ? Hypnotics (such as Ambien or Lunesta) ? Other prescription opioids KNOW YOUR OPTIONS Talk to your health care provider about ways to manage your pain that don?t involve prescription opioids. Some of these options may actually work better and have fewer risks and side effects. Options may include: ? Pain relievers such as acetaminophen, ibuprofen, and naproxen ? Some medication that are also used for depression or seizures ? Physical therapy and exercise ? Cognitive behavioral therapy, a psychological, goal-directed approach, in which patients learn how to modify physical, behavioral, and emotional triggers of pain and stress. IF YOU ARE PRESCRIBED OPIOIDS FOR PAIN: ? Never take opioids in greater amounts or more often than prescribed. ? Follow up with your primary health care provider. o Work together to create a plan on how to manage your pain. o Talk about ways to help manage your pain that don?t involve prescription opioids. o Talk about any and all concerns and side effects. ? Help prevent misuse and abuse o Never sell or share prescription opioids. o Never use another person?s prescription opioids. ? Store prescription opioids in a secure place and out of reach of others (this may include visitors, children, friends, and family). ? Safely dispose of unused prescription opioids: Find your community drug take-back program or your pharmacy mail-back program, or flush them down the toilet, following guidance from the Food and Drug Administration (www.fda.gov/Drugs/Resourc esForYou). ? Visit www.cdc.gov/drugoverdose to learn about the risks of opioids abuse and overdose. ? If you believe you may be struggling with addiction, tell your health restorative care technician and ask for guidance or call SAMA?S National Helpline at 9-858-758-ZCPO. y Source: US Department of Health and Human Services/Center for Disease Control & Prevention [facility] Medications Given: Medication Dos (more content not included)... Normal [facility] ED Traumaon 10-12-2023 ED Trauma [id number]#1.00TIFF Normal [facility] LDL Cholesterol Measuredon 0 10-12-2023 LDL Cholesterol Measured 39 mg/dL Normal 0-100 [facility] Comment on above: Result Comment: LDL ATP III CLASSIFICATION LDL less than 100 mg/dL Optimal LDL 100-129 mg/dL Near or above optimal LDL 130-159 mg/dL Borderline high LDL 160-189 mg/dL High LDL greater than 189 mg/dL Very high Performed By: #### L DLD, TSH3 wRFLX, LIPID, [id number] #### [facility] [address] [place] [id number] [facility] Lipid Panelon 10-12-2023 Cholesterol [Mass/Vol] 123 mg/dL Low 140-200 [facility] Comment on above: Result Comment: Chol less than 200 mg/dl low risk Chol 201-239 mg/dl borderline risk Chol 240 mg/dl and greater high risk Performed By: #### L DLD, TSH3 wRFLX, LIPID, [id number] #### [facility] [address] Cholesterol in HDL [Mass/Vol] 37 mg/dL Normal 23-92 [facility] Comment on above: Result Comment: HDL CHOL ATP-III CLASSIFICATION Cardiovascular Risk HDL > or equal to 60 mg/dL LOW HDL < 40 mg/dL HIGH Performed By: #### L DLD, TSH3 wRFLX, LIPID, [id number] #### [facility] [address] [place] [address] [facility] Cholesterol.total/Cho lesterol in HDL [Mass ratio] 3.3 {ratio} Normal <5.0 [facility] Comment on above: Performed By: #### L DLD, TSH3 wRFLX, LIPID, [id number] #### [facility] [address] [place] [id number] [place] LDL Cholesterol,Calculate d Not performed Normal 0-100 [facility] Comment on above: Performed By: #### L DLD, TSH3 wRFLX, LIPID, [id number] #### [facility] [address] Triglyceride w/Reflex 570 mg/dL High 0-[address] [facility] Comment on above: Result Comment: TRIG ATP III CLASSIFICATION TRIG less than 150 mg/dL Normal TRIG 150-199 mg/dL Borderline high TRIG 200-500 mg/dL High TRIG greater than 500 mg/dL Very high Standard traceable to the Center for Disease Conrtrol and Prevention (CDC) test method. If the triglyceride result is greater than 400, LDLC and related calculations cannot be calculated and resulted. Performed By: #### L DLD, TSH3 wRFLX, LIPID, [id number] #### [facility] [address] [place] [address] VLDL CHOLESTEROL 114 mg/dL Normal [facility] Comment on above: Performed By: #### L DLD, TSH3 wRFLX, LIPID, [id number] #### [facility] [address] [place] [address] Outside Recordson 10-12-2023 Outside Records [id number]#1.00TIFF [facility] Thyroid Stim Hormone w/Rflxo n 10-12-2023 Thyroid Stim Hormone w/Rflx 2.83 u[iU]/mL Normal 0.45-5.33 [facility] Comment on above: Performed By: #### L DLD, TSH3 wRFLX, LIPID, [id number] #### [facility] [address] [place] [address] Transfer Documentson 024 Transfer Documents [id number]#1.00TIFF [facility] Vaccinationson 10-12-2023 Vaccinations [id number]#1.00TIFF [facility] Valuables Checkliston 2023 Valuables Checklist [id number]#1.00TIFF [facility] Vitamin D 25 Hydroxy Totalon 10-12-2023 Vitamin D 25 Hydroxy Total 30.5 ng/mL Normal 30-100 [facility] Comment on above: Result Comment: ALLEN MIN D STATUS 25(OH)VITAMIN D RANGE (ng/mL) Deficient <20 Insufficient 20 to <30 Sufficient 30 to 100 Reference: Lenin MF,Darlene NC, Kimberly HAMMOND, et al. Evaluation,treatment, and prevention of vitamin D deficiency; an Endocrine Society clinical practice guideline. JCEM. 2010; 96(7):1911-30. PERFORMED BY: [facility] [address] [place] [id number] PATHOLOGIST IT SENIOR ANALYST VONNIE CHARLES M.D. Performed By: #### L DLD, TSH3 wRFLX, LIPID, [id number] #### [facility] [address] [place] [address] [facility] Acetamnphn Lvlon 10-11-2023 Acetaminoph Lvl <10 Low 15-30 [facility] Comment on above: Performed By: #### 1 , [id number], [id number], 4091551, [id number], [id number] ####[facility] [address] [place] [address] BB Draw & Holdon 10-11-2023 BB D&H Sample drawn for Blood Ba Normal [facility] Comment on above: Performed By: #### 1 , [id number], 0876725, [id number], [id number], [id number] ####[facility] [address] [place] [address] CBC w/ Auto Diffon 4 Basophil Absolute 0.0 E9/L Normal 0.0-0.2 [facility] Comment on above: Performed By: #### 1 , [id number], 9214875, 3675541, 01551145, 4505839 ####[facility] [address] [place] [address] Basophils/100 WBC (Bld) 0.3 % Normal 0.0-2.0 [facility] Comment on above: Performed By: #### 1 , , 6442740, 0651272, 55431289, 4336340 ####[place] [address] [place] [address] Eos Absolute 0.1 E9/L Normal 0.0-0.5 [facility] Comment on above: Performed By: #### 1 , , 5557179, 1471658, 47485316, 3629249 ####[address] [address] Eosinophils/100 WBC (Bld) 1.1 % Normal 0.0-8.0 [facility] Comment on above: Performed By: #### 1 , , 9972009, 9936059, 56208019, 6385870 ####[address] [address] Erythrocyte distribution width (RBC) [Ratio] 13.3 % Normal 10.9-14.2 [facility] Comment on above: Performed By: #### 1 , , 3323948, 1721128, 99445611, 1545547 ####[address] [address] Hematocrit (Bld) [Volume fraction] 32.0 % Low 37.7-49.0 [facility] Comment on above: Performed By: #### 1 , , 7728887, 1812778, 08900327, 2424383 ####[address] [address] Hemoglobin (Bld) [Mass/Vol] 10.7 g/dL Low 13.5-17.5 [facility] Comment on above: Performed By: #### 1 , , 4642121, 6955719, 38665019, 7769349 ####[place] [address] [place] [address] Lymph Absolute 1.0 E9/L Normal 1.0-4.0 [facility] Comment on above: Performed By: #### 1 , 8225219, 5193241, 5964802, 37281535, 3300441 ####[address] [address] Lymphocytes/100 WBC (Bld) 8.5 % Low 14.0-50.0 [facility] Comment on above: Performed By: #### 1 , , 3823023, 7741001, 23583561, 0607901 ####[address] [address] MCH (RBC) [Entitic mass] 29.9 pg Normal 27.0-34.0 [facility] Comment on above: Performed By: #### 1 , , 4951248, 5292406, 43813460, 9455938 ####[address] [address] MCHC (RBC) [Mass/Vol] 33.2 g/dL Normal 31.4-36.0 [facility] Comment on above: Performed By: #### 1 , , [id number], 2959722, [id number], 9807255 ####[address] [address] MCV (RBC) [Entitic vol] 90.1 fL Normal 80.0-100.0 [facility] Comment on above: Performed By: #### 1 , , 2613004, 9716625, 66182969, 9962776 ####[address] [address] [place] Absolute 0.7 E9/L Normal 0.2-1.0 [facility] Comment on above: Performed By: #### 1 , , 3206377, 6121363, 41957792, 2264062 ####[address] [place] [address] Monocytes/100 WBC (Bld) 5.9 % Normal 4.0-14.0 [facility] Comment on above: Performed By: #### 1 , 2244748, 2674488, 1451671, 46698407, 3230175 ####[address] [place] [id number] Neutro Absolute 10.1 E9/L High 2.0-7.5 [facility] Comment on above: Performed By: #### 1 , 0979014, 6967421, 6902335, 56820039, 1041022 ####[place] [address] Neutro Auto 84.2 % High 36.0-75.0 [facility] Comment on above: Performed By: #### 1 , 2977310, 1109099, 7434310, 67789959, 9774036 ####[place] [address] Platelet 223.0 E9/L Normal 150.0-500.0 [facility] Comment on above: Performed By: #### 1 , 0202265, 4310745, 5931099, 28977909, 9937068 ####[place] [address] Platelet mean volume (Bld) [Entitic vol] 7.6 fL Normal 6.4-10.8 [facility] Comment on above: Performed By: #### 1 , 6563429, 9536543, 1215065, 55683589, 2091837 ####[place] [address] RBC 3.6 E12/L Low 4.3-5.9 [facility] Comment on above: Performed By: #### 1 , 5504325, 4308068, 3716453, 08248204, 4134816 ####[address] [place] [address]8057 WBC 12.1 E9/L High 4.0-11.0 [facility] Comment on above: Performed By: #### 1 , 4002276, 0991549, 0189404, 93384984, 2666559 ####[facility] [address] [place] [address] CHEMISTRYOrdered By: SYSTEM SYSTEM on 10-11-2023 U Amph Scr NEGATIVE (10/11/23 10:06 PM) Normal NEGATIVE Remisol Chem U Paz Scr NEGATIVE (10/11/23 10:06 PM) Normal NEGATIVE Remisol Chem U Benzodia Scr NEGATIVE (10/11/23 10:06 PM) Normal NEGATIVE Remisol Chem U Cannab Scr POSITIVE 2 *ABN* (10/11/23 10:06 PM) Invalid Interpretation Code NEGATIVE [facility] Comment on above: Result Comment: No C onfirmation Requested by Physician Critical Result Verified by Repeat Analysis Unconfirmed by an Alternate Method Called to Abby Cortez by CHANTAL Cardona Cocaine Scr NEGATIVE (10/11/23 10:06 PM) Normal NEGATIVE Remisol Chem U Opiate Scr POSITIVE 1 *ABN* (10/11/23 10:06 PM) Invalid Interpretation Code NEGATIVE [facility] Comment on above: Result Comment: Crit ical Result Verified by Repeat Analysis Unconfirmed by an Alternate Method No Confirmation Requested by Physician Called to Jason Cortez by CHANTAL Cardona PCP Scr NEGATIVE (10/11/23 10:06 PM) Normal NEGATIVE [facility] Chem Acetaminoph Lvl microgram/mL Low 15 - 30 mcg/mL [facility] Albumin [Mass/Vol] 3.3 g/dL Normal 3.3 - 5.0 gm/dL [facility] Albumin/Globulin [Mass ratio] 1.7 {ratio} Normal 1.1 - 2.2 [facility] Alk Phos 41 [iU]/d Normal 21 - 98 Int._Unit/L [facility] Chem ALT 17 [iU]/d Normal 6 - 46 Int._Unit/L [facility] Anion gap [Moles/Vol] 11 mmol/L Normal 6 - 16 mEq/L [facility] AST 14 [iU]/d Normal 5 - 43 Int._Unit/L [facility] Bili Total 0.6 mg/dL Normal 0.0 - 1.1 mg/dL [facility] Calcium [Mass/Vol] 8.0 mg/dL Low 8.9 - 11. 1 mg/dL [facility] Chloride [Moles/Vol] 107 mmol/L Normal 101 - 1 11 mmol/L [facility] CO2 [Moles/Vol] 23 mmol/L Normal 21 - 31 mmol/L [facility] Creatinine [Mass/Vol] 0.8 mg/dL Normal 0.5 - 1.3 mg/dL [facility] eGFR 106 mL/min/1.73 m2 Normal >=59mL/mi n/ 1.73 m2 [facility] Ethanol Lvl mg/dL Normal <=11mg/dL [facility] Globulin (S) [Mass/Vol] 2.0 g/dL Normal 1.4 - 4.0 gm/dL [facility] Glucose [Mass/Vol] 103 mg/dL Normal 55 - 199 mg/dL [facility] Potassium [Moles/Vol] 4.5 mmol/L Normal 3.5 - 5.3 mmol/L [facility] Protein [Mass/Vol] 5.3 g/dL Low 6.0 - 7.8 gm/dL [facility] Salicylate Lvl mg/dL Low 6 - 29 mg/dL [facility] Sodium [Moles/Vol] 136 mmol/L Normal 135 - 145 mmol/L [facility] Urea nitrogen [Mass/Vol] 17 mg/dL Normal 5 - 21 mg/dL [facility] Urea nitrogen/Creatinine [Mass ratio] 21 mg/mg High 10 - 20 [facility] CMPon 10-11-2023 Albumin [Mass/Vol] 3.3 g/dL Normal 3.3-5.0 [facility] Comment on above: Performed By: #### 1 3631581, 8668027, 1285862, 1535796, 84298987, 6796512 ####[facility] [address] [place] [address] Albumin/Globulin [Mass ratio] 1.7 {ratio} Normal 1.1-2.2 [facility] Comment on above: Performed By: #### 1 , 2298960, 0317686, 4530358, 30985123, 2215966 ####[facility] [address] [place] [address] Alk Phos 41 Int._Unit/L Normal 21-98 [facility] Comment on above: Performed By: #### 1 , 5356821, 7183247, 9472064, 71157994, 1570222 ####[facility] [address] [place] [address] ALT 17 Int._Unit/L Normal 6-46 [facility] Comment on above: Performed By: #### 1 , 5829941, 0072082, 5472695, 83480538, 5010655 ####[facility] [address] [place] [address] Anion gap [Moles/Vol] 11 mmol/L Normal 6-16 [facility] Comment on above: Performed By: #### 1 , 3401573, 3922586, 3301544, 31958315, 5065145 ####[facility] [address] [place] [address] AST 14 Int._Unit/L Normal 5-43 [facility] Comment on above: Performed By: #### 1 , 6942688, 6094924, 6368790, 62043286, 2697304 ####[facility] [address] [place] [address] Bili Total 0.6 mg/dL Normal 0.0-1.1 [facility] Comment on above: Performed By: #### 1 , 9127418, 2246571, 2201029, 88712372, 4170515 ####[facility] [address] [place] [address] BUN/Creat Ratio 21 No Units High 10-20 [facility] Comment on above: Performed By: #### 1 , 4778235, 5110049, 4088085, 38456517, 3861096 ####[facility] [address] [place] [address] Calcium [Mass/Vol] 8.0 mg/dL Low 8.9-11.1 [facility] Comment on above: Performed By: #### 1 , 5878478, 8044105, 1941341, 39747225, 1203709 ####[facility] [address] [place] [address] Chloride [Moles/Vol] 107 mmol/L Normal 101-111 [facility] Comment on above: Performed By: #### 1 , , 3834626, 0647543, 90573280, 4301302 ####[facility] [address] [place] [address] CO2 [Moles/Vol] 23 mmol/L Normal 21-31 [facility] Comment on above: Performed By: #### 1 , , 2731442, 6210134, 76761062, 0144409 ####[facility] [address] [place] [address] Creatinine [Mass/Vol] 0.8 mg/dL Normal 0.5-1.3 [facility] Comment on above: Performed By: #### 1 , , 9260484, 8159474, 50546531, 0255748 ####[facility] [address] [place] [address] Globulin (S) [Mass/Vol] 2.0 g/dL Normal 1.4-4.0 [facility] Comment on above: Performed By: #### 1 , , 4404643, 0298941, 75253931, 1758387 ####[facility] [address] [place] [address] Glucose [Mass/Vol] 103 mg/dL Normal 55-199 [facility] Comment on above: Performed By: #### 1 , , 2348000, 7307970, 79459557, 0039165 ####[facility] [address] [place] [address] Potassium [Moles/Vol] 4.5 mmol/L Normal 3.5-5.3 [facility] Comment on above: Performed By: #### 1 , 8783072, 7775658, 5742924, 96794312, 6445991 ####[facility] [address] [place] [address] Protein [Mass/Vol] 5.3 g/dL Low 6.0-7.8 [facility] Comment on above: Performed By: #### 1 3421791, 0434824, 8536653, 3870670, 73119216, 2184188 ####[facility] [address] [place] [address] Sodium [Moles/Vol] 136 mmol/L Normal 135-145 [facility] Comment on above: Performed By: #### 1 1113489, 6147798, 4087771, 6029253, 40357583, 1191741 ####[facility] [address] [place] [address] Urea nitrogen [Mass/Vol] 17 mg/dL Normal 5-21 [facility] Comment on above: Performed By: #### 1 6514449, 5197052, 4789105, 5751735, 74793794, 4770655 ####[facility] [address] [place] [address] Consent for Treatmenton 09-17 Consent for Treatment .[id number]#1.00TIFF Normal [facility] Ethanolon 10-11-2023 Ethanol Lvl <10 Normal <=11 [facility] Comment on above: Performed By: #### 2 745985 ####[facility] [address] [place] [address] Financial Assistance Forms O fficeon 10-11-2023 Financial Assistance Forms Office [id number]#1.00TIFF Normal [facility] HEMATOLOGYOrdered By: SYSTEM SYSTEM on 10-11-2023 Basophil Absolute 0.0 E9/L Normal 0.0 - 0.2 E9/L Rem[facility] Heme Basophils/100 WBC (Bld) 0.3 % Normal 0.0 - 2.0 % [facility]e Eos Absolute 0.1 E9/L Normal 0.0 - 0.5 E9/L [facility]e Eosinophils/100 WBC (Bld) 1.1 % Normal 0.0 - 8.0 % [facility] Heme Erythrocyte distribution width (RBC) [Ratio] 13.3 % Normal 10.9 - 14.2 % [facility] Heme Hematocrit (Bld) [Volume fraction] 32.0 % Low 37.7 - 49.0 % [facility]e Hemoglobin (Bld) [Mass/Vol] 10.7 g/dL Low 13.5 - 17.5 gm/dL [facility] Lymph Absolute 1.0 E9/L Normal 1.0 - 4.0 E9/L [facility]e Lymphocytes/100 WBC (Bld) 8.5 % Low 14.0 - 50.0 % Rem[facility] Heme MCH (RBC) [Entitic mass] 29.9 pg Normal 27.0 - 34.0 pg Rem[facility] Heme MCHC (RBC) [Mass/Vol] 33.2 g/dL Normal 31.4 - 36.0 gm/dL [facility]e MCV (RBC) [Entitic vol] 90.1 fL Normal 80.0 - 100.0 fL [facility] Heme [place] Absolute 0.7 E9/L Normal 0.2 - 1.0 E9/L [facility] Heme Monocytes/100 WBC (Bld) 5.9 % Normal 4.0 - 14.0 % [facility]e Neutro Absolute 10.1 E9/L High 2.0 - 7.5 E9/L [facility] Heme Neutro Auto 84.2 % High 36.0 - 75.0 % [facility] Platelet 223.0 E9/L Normal 150.0 - 500.0 E9/L [facility] Heme Platelet mean volume (Bld) [Entitic vol] 7.6 fL Normal 6.4 - 10.8 fL [facility] Heme RBC 3.6 E12/L Low 4.3 - 5.9 E12/L [facility] Heme WBC 12.1 E9/L High 4.0 - 11.0 E9/L [facility] Heme MICRO OTHER TESTSOrdered By: Maritza Slaughter on 10-11-2023 Rapid COV Int NEG Ctl Pass (10/11/23 9:36 PM) Normal [facility] Man Sero Rapid COV Int POS Ctl Pass (10/11/23 9:36 PM) Normal [facility] Man Sero SARS-CoV+SARS-CoV-2 (COVID-19) Ag IA.rapid Ql (Resp) Not Detected 3 (10/11/23 9:36 PM) Normal Not Detected [facility] Man Sero Comment on above: Interpretive Data: Anne meier [employer] Veritor System for Rapid Detection of SARS-CoV-2 is a chromatographic digital immunoassay intended for the direct and qualitative detection of SARS-CoV-2 nucleocapsid antigens in nasal swabs from individuals who are suspected of COVID-19 by their healthcare provider within the first five days of the onset of symptoms. Negative results should be treated as presumptive, do not rule out SARS-CoV-2 infection and should not be used as the sole basis for treatment or patient management decisions, including infection control decisions. Negative results should be considered in the context of a patient s recent exposures, history and the presence of clinical signs and symptoms consistent with COVID-19, and confirmed with a molecular assay, if necessary, for patient management. For in vitro diagnostic use. In the [place], only for use under an Emergency Use Authorization. In the [place], this test has not been FDA cleared or approved; this test has been authorized by FDA under an EUA for use by authorized laboratories; use by laboratories certified under the CLIA, 42 U.S.C. 263a, that meet requirements to perform moderate, high, or waived complexity tests and at the Point of Care (POC), i.e., in patient care settings operating under a CLIA Certificate of Waiver, Certificate of Compliance, or Certificate of Accreditation. This test has been authorized only for the detection of proteins from SARS-CoV-2, not for any other viruses or pathogens; and, in the [place], this test is only authorized for the duration of the declaration that circumstances exist justifying the authorization of emergency use of in vitro diagnostics for detection and/or diagnosis of the virus that causes COVID-19 under Section 564(b)(1) of the Act, 21 U.S.C. 360bbb-3(b)(1), unless the authorization is terminated or revoked sooner. Rapid COVID Antigen ([facility])on 10-11-2023 Rapid COV Int NEG Ctl Pass Normal [facility] Comment on above: Performed By: #### 2 [id number] ####[facility] [address] [place] [address] Rapid COV Int POS Ctl Pass Normal [facility] Comment on above: Performed By: #### 2 [id number] ####[facility] [address] [place] [address] SARS-CoV+SARS-CoV-2 (COVID-19) Ag IA.rapid Ql (Resp) Not detected Normal Not Detected [facility] Comment on above: Result Comment: The AOB[employer]omeitor? System for Rapid Detection of SARS-CoV-2 is a chromatographic digital immunoassay intended for the direct and qualitative detection of SARS-CoV-2 nucleocapsid antigens in nasal swabs from individuals who are suspected of COVID-19 by their healthcare provider within the first five days of the onset of symptoms. Negative results should be treated as presumptive, do not rule out SARS-CoV-2 infection and should not be used as the sole basis for treatment or patient management decisions, including infection control decisions. Negative results should be considered in the context of a patient?s recent exposures, history and the presence of clinical signs and symptoms consistent with COVID-19, and confirmed with a molecular assay, if necessary, for patient management. For in vitro diagnostic use. In the [place], only for use under an Emergency Use Authorization. In the [place], this test has not been FDA cleared or approved; this test has been authorized by FDA under an EUA for use by authorized laboratories; use by laboratories certified under the CLIA, 42 U.S.C. ?263a, that meet requirements to perform moderate, high, or waived complexity tests and at the Point of Care (POC), i.e., in patient care settings operating under a CLIA Certificate of Waiver, Certificate of Compliance, or Certificate of Accreditation. This test has been authorized only for the detection of proteins from SARS-CoV-2, not for any other viruses or pathogens; and, in the [place], this test is only authorized for the duration of the declaration that circumstances exist justifying the authorization of emergency use of in vitro diagnostics for detection and/or diagnosis of the virus that causes COVID-19 under Section 564(b)(1) of the Act, 21 U.S.C. ? 360bbb-3(b)(1), unless the authorization is terminated or revoked sooner. Performed By: #### 2 [id number] ####[facility] [address] [place] [address] Salicylateon 10-11-2023 Salicylate Lvl <4 Low 6-29 [facility] Comment on above: Performed By: #### 1 2853982, 1183518, 3314645, 9953373, 32888028, 9785149 ####[facility] [address] [place] [address] U Drug Screenon 10-11-2023 U Amph Scr Negative Normal NEGATIVE [facility] Comment on above: Performed By: #### 2 149786 ####[facility] [address] [place] [address] U Paz Scr Negative Normal NEGATIVE [facility] Comment on above: Performed By: #### 2 977119 ####[facility] [address] [place] [address] U Benzodia Scr Negative Normal NEGATIVE [facility] Comment on above: Performed By: #### 2 562675 ####[address] [place] [address] U Cannab Scr Positive Abnormal NEGATIVE [facility] Comment on above: Result Comment: No C onfirmation Requested by Physician Critical Result Verified by Repeat Analysis Unconfirmed by an Alternate Method Called to Abby Cortez by KD Performed By: #### 2 914658 ####[facility] [address] [place] [address] U Cocaine Scr Negative Normal NEGATIVE [facility] Comment on above: Performed By: #### 2 403421 ####[facility] [address] [place] [address] U Opiate Scr Positive Abnormal NEGATIVE [facility] Comment on above: Result Comment: Crit ical Result Verified by Repeat Analysis Unconfirmed by an Alternate Method No Confirmation Requested by Physician Called to Jason Cortez by KD Performed By: #### 2 909142 ####[facility] [address] [place] [address] U PCP Scr Negative Normal NEGATIVE [facility] Comment on above: Performed By: #### 2 118641 ####[facility] [address] [place] [address] UA With Cult Reflexon 2023 Bilirubin Ql (U) Negative Normal Negative [facility] Comment on above: Performed By: #### 1 [id number] ####[address] [address] Clarity (U) CLEAR Normal Clear [facility] Comment on above: Performed By: #### 1 [id number] ####[address] [address] Color (U) YELLOW Normal Yellow [facility] Comment on above: Performed By: #### 1 1236022 ####[address] [address] Epithelial cells.squamous LM.HPF (Urine sed) [#/Area] 0-2 Normal 0-2 [facility] Comment on above: Performed By: #### 1 6469216 ####[address] [address] Glucose Test strip (U) [Mass/Vol] Negative Normal Negative [facility] Comment on above: Performed By: #### 1 [id number] ####[facility] [address] [place] [address] Hemoglobin Ql (U) TRACE Abnormal Negative [facility] Comment on above: Performed By: #### 1 0650494 ####[facility] [address] [place] [address] Ketones (U) [Mass/Vol] Negative Normal Negative [facility] Comment on above: Performed By: #### 1 3392905 ####[facility] [address] [place] [address] [place].plasma/Lithiu m.RBC (Bld) [Mass ratio] 0-3 Normal 0-3 [facility] Comment on above: Performed By: #### 1 3922072 ####[facility] [address] [place] [address] Mucus Ql (Urine sed) TRACE Normal Fish [facility] Comment on above: Performed By: #### 1 6896923 ####[facility] [address] Nitrite Ql (U) Negative Normal Negative [facility] Comment on above: Performed By: #### 1 0419669 ####[address] [address] pH (U) 5.5 [pH] Invalid Interpretation Code 5.0-9.0 [facility] Comment on above: Performed By: #### 1 1987412 ####[address] [address] Protein (U) [Mass/Vol] Negative Normal Negative [facility] Comment on above: Performed By: #### 1 [id number] ####[address] [address] Specific gravity (U) [Rel density] 1.020 Invalid Interpretation Code 1.005-1.030 [facility] Comment on above: Performed By: #### 1 1692098 ####[address] [address] Type of Urine collection method Clean Catch Normal [facility] Comment on above: Performed By: #### 1 2127098 ####[address] [address] Urobilinogen Qn (U) 0.2 {Huseyin'U}/dL Normal 0.0-1.0 [facility] Comment on above: Performed By: #### 1 5585204 ####[address] [address] WBC Auto Ql (U) Negative Normal Negative [facility] Comment on above: Performed By: #### 1 9886808 ####[address] [address] WBC LM.HPF (Urine sed) [#/Area] 0-5 Normal 0-5 [facility] Comment on above: Performed By: #### 1 [id number] ####[address] [address] URINALYSISOrdered By: Robby Slaughter on 10-11-2023 Bilirubin Ql (U) Negative (10/11/23 10:06 PM) Normal Negative [facility] UA Auto SS Clarity (U) Clear (10/11/23 10:06 PM) Normal Clear [facility] UA Auto SS Color (U) Yellow (10/11/23 10:06 PM) Normal Yellow [facility] UA Auto SS Epithelial cells.squamous LM.HPF (Urine sed) [#/Area] 0-2 /HPF Normal 0-2/HPF [facility] UA Auto SS Glucose Test strip (U) [Mass/Vol] Negative (10/11/23 10:06 PM) Normal Negative [facility] UA Auto SS Hemoglobin Ql (U) Trace *ABN* (10/11/23 10:06 PM) Invalid Interpretation Code Negative [facility] UA Auto SS Ketones (U) [Mass/Vol] Negative (10/11/23 10:06 PM) Normal Negative [facility] UA Auto SS [place].plasma/Lithiu m.RBC (Bld) [Mass ratio] 0-3 /HPF Normal 0-3/HPF [facility] UA Auto SS Mucus Ql (Urine sed) Trace (10/11/23 10:06 PM) Normal [facility] UA Auto SS Nitrite Ql (U) Negative (10/11/23 10:06 PM) Normal Negative [facility] UA Auto SS pH (U) 5.5 *NA* (10/11/23 10:06 PM) Invalid Interpretation Code 5.0 - 9.0 [facility] UA Auto SS Protein (U) [Mass/Vol] Negative (10/11/23 10:06 PM) Normal Negative [facility] UA Auto SS Specific gravity (U) [Rel density] 1.020 *NA* (10/11/23 10:06 PM) Invalid Interpretation Code 1.005 - 1.030 [facility] UA Auto SS UA Spec Desc Clean Catch (10/11/23 10:06 PM) Normal [facility] UA Auto SS Urobilinogen Qn (U) 0.3066117 {Huseyin'U}/dL Normal 0.0 - 1.0 EU/dL [facility] UA Auto SS WBC Auto Ql (U) Negative (10/11/23 10:06 PM) Normal Negative [facility] UA Auto SS WBC LM.HPF (Urine sed) [#/Area] 0-5 /HPF Normal 0-5/HPF [facility] UA Auto SS eGFRon 10-11-2023 eGFR 106 mL/min/1.73 m2 Normal >=59 [facility] Comment on above: Order Comment: Order added by Discern Expert. Performed By: #### 1 [id number], 8458460, 7468194, 1694285, 23995756, 8769091 ####[facility] [address] [place] [address] Vital Signs Date Time Vital Sign Value Performing Clinician Facility 06-23-2024 14:36-0500 Blood Pressure Location Leandra Jacksonlizettetyler [facility] 06-23-2024 14:36-0500 Body temperature 98.6 [degF] Leandra Jacksonlizetteer [facility] 06-23-2024 14:36-0500 Diastolic blood pressure 74 mm[Hg] Leandra Jacksonlizetteer [facility] 06-23-2024 14:36-0500 Heart rate 104 /min Leandra Jacksonlizettetyler [facility] 06-23-2024 14:36-0500 SaO2% (BldA) [Mass fraction] 97 % Leandra Jacksonlizettetyler [facility] 06-23-2024 14:36-0500 Systolic blood pressure 120 mm[Hg] Leandra Peggyer [facility] 06-01-2024 10:18-0400 Body height 162.56 cm [facility] 06-01-2024 10:18-0400 Body mass index (BMI) [Ratio] 27.8 kg/m2 [facility] 06-01-2024 10:18-0400 Body temperature 97.3 [degF] [facility] 06-01-2024 10:18-0400 Body weight 73.53 kg [facility] 06-01-2024 10:18-0400 Diastolic blood pressure 92 mm[Hg] [facility] 06-01-2024 10:18-0400 Heart rate 110 /min [facility] 06-01-2024 10:18-0400 Systolic blood pressure 148 mm[Hg] [facility] 10-12-2023 01:30-0500 Diastolic blood pressure 84 mm[Hg] Lion Yuriy [facility] 10-12-2023 01:30-0500 Heart rate 104 /min Lion Yuriy [facility] 10-12-2023 01:30-0500 Hourly Rounding Lion Yuriy [facility] 10-12-2023 01:30-0500 Mean blood pressure 98 mm[Hg] Lion Yuriy [facility] 10-12-2023 01:30-0500 Respiratory rate 11 /min Lion Yuriy [facility] 10-12-2023 01:30-0500 SaO2% (BldA) [Mass fraction] 97 % Lion Yuriy [facility] 10-12-2023 01:30-0500 Systolic blood pressure 127 mm[Hg] Lion Yuriy [facility] 10-12-2023 00:56-0500 Diastolic blood pressure 82 mm[Hg] Lion Yuriy [facility] 10-12-2023 00:56-0500 Heart rate 98 /min Lion Yuriy [facility] 10-12-2023 00:56-0500 Hourly Rounding Lion Yuriy [facility] 10-12-2023 00:56-0500 Mean blood pressure 93 mm[Hg] Lion Yuriy [facility] 10-12-2023 00:56-0500 Respiratory rate 21 /min Lion Yuriy [facility] 10-12-2023 00:56-0500 SaO2% (BldA) [Mass fraction] 99 % Lion Yuriy [facility] 10-12-2023 00:56-0500 Systolic blood pressure 114 mm[Hg] Lion Yuriy [facility] 10-12-2023 00:02-0500 Diastolic blood pressure 86 mm[Hg] Lion Yuriy [facility] 10-12-2023 00:02-0500 Heart rate 112 /min Lion Yuriy [facility] 10-12-2023 00:02-0500 Hourly Rounding Lion Yan [facility] 10-12-2023 00:02-0500 Mean blood pressure 101 mm[Hg] Lion Yuriy [facility] 10-12-2023 00:02-0500 Respiratory rate 33 /min Lion Yuriy [facility] 10-12-2023 00:02-0500 SaO2% (BldA) [Mass fraction] 98 % Lion Yuriy [facility] 10-12-2023 00:02-0500 Systolic blood pressure 131 mm[Hg] Lion Yuriy [facility] 10-11-2023 22:07-0500 Body temperature 98.6 [degF] Lion Yuriy [facility] 10-11-2023 19:45-0500 Body temperature 97.88 [degF] Lion Yuriy [facility] 10-11-2023 19:45-0500 Heart rate 100 /min Lion Yuriy [facility] 10-11-2023 19:45-0500 Respiratory rate 21 /min Lion Yuriy [facility] 10-11-2023 19:16-0500 Body temperature 96.62 [degF] Lion Yan [facility] 10-11-2023 19:16-0500 Heart rate 122 /min Lion Yan [facility] 10-11-2023 19:16-0500 Respiratory rate 16 /min Lion Yan [facility] 08-04-2022 09:53-0500 Diastolic blood pressure 100 mm[Hg] Kulwant OCHOA [facility] 08-04-2022 09:53-0500 Mean blood pressure 113 mm[Hg] Kulwant OCHOA [facility] 08-04-2022 09:53-0500 Systolic blood pressure 140 mm[Hg] Kulwant OCHOA [facility] 08-04-2022 09:22-0500 Blood Pressure Location Kulwant OCHOA [facility] 08-04-2022 09:22-0500 Body temperature 98.24 [degF] Kulwant OCHOA [facility] 08-04-2022 09:22-0500 Heart rate 90 /min Kulwant OCHOA [facility] 08-04-2022 09:22-0500 SaO2% (BldA) [Mass fraction] 98 % Kulwant OCHOA [facility] 02-09-2022 12:02-0400 Diastolic blood pressure 92 mm[Hg] VALENTINE SIDEGADIEL [facility] 02-09-2022 12:02-0400 Mean blood pressure 109 mm[Hg] VALENTINE SIDELL [facility] 02-09-2022 12:02-0400 Systolic blood pressure 142 mm[Hg] VALENTINE SIDELL [facility] 02-09-2022 11:51-0400 Blood Pressure Location VALENTINE SIDELL [facility] 02-09-2022 11:51-0400 Diastolic blood pressure 98 mm[Hg] VALENTINE SIDELL [facility] 02-09-2022 11:51-0400 Heart rate 80 /min VALENTINE SIDELL [facility] 02-09-2022 11:51-0400 SaO2% (BldA) [Mass fraction] 99 % VALENTINE SIDELL [facility] 02-09-2022 11:51-0400 Systolic blood pressure 142 mm[Hg] VALENTINE SIDELL [facility] 11-18-2021 14:40-0400 Diastolic blood pressure 80 mm[Hg] Kulawnt GABRIELA [facility] 11-18-2021 14:40-0400 Mean blood pressure 97 mm[Hg] Kulwant GABRIELA [facility] 11-18-2021 14:40-0400 Systolic blood pressure 130 mm[Hg] Kulwant GABRIELA [facility] 11-18-2021 14:18-0400 Blood Pressure Location Kulwant OCHOA [facility] 11-18-2021 14:18-0400 Body temperature 98.78 [degF] Kulwant OCHOA [facility] 11-18-2021 14:18-0400 Diastolic blood pressure 90 mm[Hg] Kulwant OCHOA [facility] 11-18-2021 14:18-0400 Heart rate 88 /min Kulwant OCHOA [facility] 11-18-2021 14:18-0400 SaO2% (BldA) [Mass fraction] 98 % Kulwant OCHOA [facility] 11-18-2021 14:18-0400 Systolic blood pressure 146 mm[Hg] Kulwant OCHOA [facility] Encounters Encounter Date Encounter Type Care Provider Facility Start: 06-23-2024 End: 06-23-2024 ambulatory Leandra Lancaster Facility:[facility] Start: 06-23-2024 End: 06-23-2024 Patient encounter procedure Leandra Lancaster [facility] Start: 06-01-2024 End: 06-01-2024 ambulatory [facility] Work Phone: Start: 06-01-2024 End: 06-01-2024 Patient encounter procedure [facility] Work Phone: Start: 10-12-2023 End: 10-18-2023 Evaluation and management of inpatient Kulwant Ochoa Facility:[facility] Start: 10-11-2023 End: 10-12-2023 Emergency department patient visit Lion Yan [facility] Start: 08-04-2022 End: 08-04-2022 Patient encounter procedure Kulwant Thania GABRIELA [facility] Start: 02-27-2022 End: 05-28-2022 Patient encounter procedure Kulwant OCHOA [facility] Start: 02-11-2022 End: 02-11-2022 Patient encounter procedure VALENTINE TORRES [facility] Start: 02-09-2022 End: 02-09-2022 Patient encounter procedure VALENTINE TORRES [facility] Start: 11-18-2021 End: 11-18-2021 Patient encounter procedure Kulwant OCHOA [facility] Procedures Date Procedure Procedure Detail Performing Clinician Start: 06-01-2024 Quick Strep (POC) Start: 10-09-2015 Injection of facet j oint using fluoroscopic guidance Kulwant OCHOA Comment on above: bilateral L3-S1 75% for the first week Appendectomy Kulwant OCHOA groin surgey as a child Johnny OCHOA kidney surgery as a child Dong OCHOA Immunizations Immunization Date Immunization Notes Care Provider Paulo lugo NEGATED: Highlighted row has not occurred!08-04-2022 influenza virus vaccine, unspecified formulation Kulwant OCHOA [facility] NEGATED: Highlighted row has not occurred!11-27-2019 influenza virus vaccine, live, attenuated, for intranasal use Kulwant OCHOA [facility] Payers Date Payer Category Payer Private Health Insurance [id number] 2023 Self-pay 1970 Unknown [id number] 27 1970 Unknown [id number] 27 1970 Unknown [id number] 27 Unknown [id number] 31 Unknown Omar/Isabela tinsley [facility] [id number] Social History Date Type Detail Facility Start: 02-26-2021 End: 10-12-2023 Tobacco smoking status Never smoked tobacco (finding) [facility] Tobacco smoking status Never [facility] Comment on above: denies Sex Assigned At Male [facility] Tobacco [facility] Comment on above: denies Tobacco smoking status No Smokin g Status Entered [facility] Start: 1970 Sex Assigned At Male [facility] Start: 06-23-2024 Tobacco smoking status Ex-smoker (fi nding) [facility] Comment on above: denies Functional Status Date Assessment Result Facility 06-23-2024 Functional Status N/A [facility] 10-11-2023 Functional Status N/A [facility] 08-04-2022 Functional Status N/A [facility] 02-09-2022 Functional Status N/A [facility] Clinical Notes 11-18-2021 to 06-23-2024 Note Date & Type Note Facility 06-23-2024 Hospital Discharge instructions Patient Education 06/23/2024 20:24:57 Pharyngitis, Ykdj-js-Nnhm Pharyngitis Pharyngitis is a sore throat (pharynx). This is when there is redness, pain, and swelling in your throat. Most of the time, this condition gets better on its own. In some cases, you may need medicine. What are the causes? An infection from a virus. An infection from bacteria. Allergies. What increases the risk? Being 5 24 years old. Being in crowded environments. These include: ?Daycares. ?Schools. ?Dormitories. Living in a place with cold temperatures outside. Having a weakened disease-fighting (immune) system. What are the signs or symptoms? Symptoms may vary depending on the cause. Common symptoms include: Sore throat. Tiredness (fatigue). Low-grade fever. Stuffy nose. Cough. Headache. Other symptoms may include: Glands in the neck (lymph nodes) that are swollen. Skin rashes. Film on the throat or tonsils. This can be caused by an infection from bacteria. Vomiting. Red, itchy eyes. Loss of appetite. Joint pain and muscle aches. Tonsils that are temporarily bigger than usual (enlarged). How is this treated? Many times, treatment is not needed. This condition usually gets better in 3 4 days without treatment. If the infection is caused by a bacteria, you may be need to take antibiotics. Follow these instructions at home: Medicines Take ndez-ibw-oahkqkk and prescription medicines only as told by your doctor. If you were prescribed an antibiotic medicine, take it as told by your doctor. Do not stop taking the antibiotic even if you start to feel better. Use throat lozenges or sprays to soothe your throat as told by your doctor. Children can get pharyngitis. Do not give your child aspirin. Managing pain To help with pain, try: Sipping warm liquids, such as: ?Broth. ?Herbal tea. ?Warm water. Eating or drinking cold or frozen liquids, such as frozen ice pops. Rinsing your mouth (gargle) with a salt water mixture 3 4 times a day or as needed. ?To make salt water, dissolve 1 tsp (3 6 g) of salt in 1 cup (237 mL) of warm water. ?Do not swallow this mixture. Sucking on hard candy or throat lozenges. Putting a cool-mist humidifier in your bedroom at night to moisten the air. Sitting in the bathroom with the door closed for 5 10 minutes while you run hot water in the shower. General instructions Do not smoke or use any products that contain nicotine or tobacco. If you need help quitting, ask your doctor. Rest as told by your doctor. Drink enough fluid to keep your pee (urine) pale yellow. How is this prevented? Wash your hands often for at least 20 seconds with soap and water. If soap and water are not available, use hand probation supervisor. Do not touch your eyes, nose, or mouth with unwashed hands. Wash hands after touching these areas. Do not share cups or eating utensils. Avoid close contact with people who are sick. Contact a doctor if: You have large, tender lumps in your neck. You have a rash. You cough up green, yellow-brown, or bloody spit. Get help right away if: You have a stiff neck. You drool or cannot swallow liquids. You cannot drink or take medicines without vomiting. You have very bad pain that does not go away with medicine. You have problems breathing, and it is not from a stuffy nose. You have new pain and swelling in your knees, ankles, wrists, or elbows. These symptoms may be an emergency. Get help right away. Call your local emergency services (911 in the [place] Do not wait to see if the symptoms will go away. Do not drive yourself to the hospital. Summary Pharyngitis is a sore throat (pharynx). This is when there is redness, pain, and swelling in your throat. Most of the time, pharyngitis gets better on its own. Sometimes, you may need medicine. If you were prescribed an antibiotic medicine, take it as told by your doctor. Do not stop taking the antibiotic even if you start to feel better. This information is not intended to replace advice given to you by your health care provider. Make sure you discuss any questions you have with your health care provider. Document Revised: 10/29/2021 Document Reviewed: 10/29/2021 [employer] Patient Education 2023 [employer]. 06/23/2024 20:24:49 Cough, Adult, Vakn-ck-Vykk Cough, Adult A cough helps to clear your throat and lungs. It may be a sign of an illness or another condition. A short-term (acute) cough may last 2 3 weeks. A long-term (chronic) cough may last 8 or more weeks. Many things can cause a cough. They include: Illnesses such as: ?An infection in your throat or lungs. ?Asthma or other heart or lung problems. ?Gastroesophageal reflux. This is when acid comes back up from your stomach. Breathing in things that bother (irritate) your lungs. Allergies. Postnasal drip. This is when mucus runs down the back of your throat. Smoking. Some medicines. Follow these instructions at home: Medicines Take tnsw-ckn-clgkzsy and prescription medicines only as told by your doctor. Talk with your doctor before you take cough medicine (cough suppressants). Eating and drinking Do not drink alcohol. Do not drink caffeine. Drink enough fluid to keep your pee (urine) pale yellow. Lifestyle Stay away from cigarette smoke. Do not smoke or use any products that contain nicotine or tobacco. If you need help quitting, ask your doctor. Stay away from things that make you cough. These may include perfume, candles, cleaning products, or campfire smoke. General instructions Watch for any changes to your cough. Tell your doctor about them. Always cover your mouth when you cough. If the air is dry in your home, use a cool mist vaporizer or humidifier. If your cough is worse at night, try using extra pillows to raise your head up higher while you sleep. Rest as needed. Contact a doctor if: You have new symptoms. Your symptoms get worse. You cough up pus. You have a fever that does not go away. Your cough does not get better after 2 3 weeks. Cough medicine does not help, and you are not sleeping well. You have pain that gets worse or is not helped with medicine. You are losing weight and do not know why. You have night sweats. Get help right away if: You cough up blood. You have trouble breathing. Your heart is beating very fast. These symptoms may be an emergency. Get help right away. Call 911. Do not wait to see if the symptoms will go away. Do not drive yourself to the hospital. This information is not intended to replace advice given to you by your health care provider. Make sure you discuss any questions you have with your health care provider. Document Revised: 04/02/2023 Document Reviewed: 04/02/2023 [employer] Patient Education 2023 [employer]. 06/23/2024 20:24:48 Asthma, Adult, Wjut-zo-Agfw Asthma, Adult Asthma is a condition that causes swelling and narrowing of the airways. These are the passages that lead from the nose and mouth down into the lungs. When asthma symptoms get worse it is called an asthma attack or flare. This can make it hard to breathe. Asthma flares can range from minor to life-threatening. There is no cure for asthma, but medicines and lifestyle changes can help to control it. What are the causes? It is not known exactly what causes asthma, but certain things can cause asthma symptoms to get worse (triggers). What can trigger an asthma attack? Cigarette smoke. Mold. Dust. Your pet's skin flakes (dander). Cockroaches. Pollen. Air pollution (like household tile trimmer, wood smoke, smog, or chemical odors). What are the signs or symptoms? Trouble breathing (shortness of breath). Coughing. Making high-pitched whistling sounds when you breathe, most often when you breathe out (wheezing). Chest tightness. Tiredness with little activity. Poor exercise tolerance. How is this treated? Controller medicines that help prevent asthma symptoms. Fast-acting reliever or rescue medicines. These give short-term relief of asthma symptoms. Allergy medicines if your attacks are brought on by allergens. Medicines to help control the body's defense (immune) system. Staying away from the things that cause asthma attacks. Follow these instructions at home: Avoiding triggers in your home Do not allow anyone to smoke in your home. Limit use of fireplaces and wood stoves. Get rid of pests (such as roaches and mice) and their droppings. Keep your home clean. ?Clean your floors. Dust regularly. Use cleaning products that do not smell. ?Wash bed sheets and blankets every week in hot water. Dry them in a dryer. ?Have someone vacuum when you are not home. ?Change your heating and air conditioning filters often. Use blankets that are made of polyester or cotton. General instructions Take uycs-eaj-boshksv and prescription medicines only as told by your doctor. Do not smoke or use any products that contain nicotine or tobacco. If you need help quitting, ask your doctor. ?Stay away from secondhand smoke. Avoid doing things outdoors when allergen counts are high and when air quality is low. Warm up before you exercise. Take time to cool down after exercise. Use a peak flow meter as told by your doctor. A peak flow meter is a tool that measures how well your lungs are working. ?Keep track of the peak flow meter's readings. Write them down. Follow your asthma action plan. This is a written plan for taking care of your asthma and treating your attacks. Make sure you get all the shots (vaccines) that your doctor recommends. Ask your doctor about a flu shot and a pneumonia shot. Keep all follow-up visits. Contact a doctor if: You have wheezing, shortness of breath, or a cough even while taking medicine to prevent attacks. The mucus you cough up (sputum) is thicker than usual. The mucus you cough up changes from clear or white to yellow, green, ewing, or is bloody. You have problems from the medicine you are taking, such as: ?A rash. ?Itching. ?Swelling. ?Trouble breathing. You need reliever medicines more than 2 3 times a week. Your peak flow reading is still at 50 79% of your personal best after following the action plan for 1 hour. You have a fever. Get help right away if: You seem to be worse and are not responding to medicine during an asthma attack. You are short of breath even at rest. You get short of breath when doing very little activity. You have trouble eating, drinking, or talking. You have chest pain or tightness. You have a fast heartbeat. Your lips or fingernails start to turn blue. You are light-headed or dizzy, or you faint. Your peak flow is less than 50% of your personal best. You feel too tired to breathe normally. These symptoms may be an emergency. Get help right away. Call 911. Do not wait to see if the symptoms will go away. Do not drive yourself to the hospital. Summary Asthma is a long-term (chronic) condition in which the airways get tight and narrow. An asthma attack can make it hard to breathe. Asthma cannot be cured, but medicines and lifestyle changes can help control it. Make sure you understand how to avoid triggers and how and when to use your medicines. Avoid things that can cause allergy symptoms (allergens). These include animal skin flakes (dander) and pollen from trees or grass. Avoid things that pollute the air. These may include household tile trimmer, wood smoke, smog, or chemical odors. This information is not intended to replace advice given to you by your health care provider. Make sure you discuss any questions you have with your health care provider. Document Revised: 05/11/2022 Document Reviewed: 05/11/2022 [employer] Patient Education 2023 [employer]. [facility] 06-23-2024 Note Patient Education ENT Cough, Adult A cough helps to clear your throat and lungs. It may be a sign of an illness or another condition. A short-term (acute) cough may last 2?3 weeks. A long-term (chronic) cough may last 8 or more weeks. Many things can cause a cough. They include: ??? Illnesses such as: ? An infection in your throat or lungs. ? Asthma or other heart or lung problems. ? Gastroesophageal reflux. This is when acid comes back up from your stomach. ??? Breathing in things that bother (irritate) your lungs. ??? Allergies. ??? Postnasal drip. This is when mucus runs down the back of your throat. ??? Smoking. ??? Some medicines. Follow these instructions at home: Medicines ??? Take wfil-pyj-cvmhyzm and prescription medicines only as told by your doctor. ??? Talk with your doctor before you take cough medicine (cough suppressants). Eating and drinking ??? Do not drink alcohol. ??? Do not drink caffeine. ??? Drink enough fluid to keep your pee (urine) pale yellow. Lifestyle ??? Stay away from cigarette smoke. ??? Do not smoke or use any products that contain nicotine or tobacco. If you need help quitting, ask your doctor. ??? Stay away from things that make you cough. These may include perfume, candles, cleaning products, or campfire smoke. General instructions ??? Watch for any changes to your cough. Tell your doctor about them. ??? Always cover your mouth when you cough. ??? If the air is dry in your home, use a cool mist vaporizer or humidifier. ??? If your cough is worse at night, try using extra pillows to raise your head up higher while you sleep. ??? Rest as needed. Contact a doctor if: ??? You have new symptoms. ??? Your symptoms get worse. ??? You cough up pus. ??? You have a fever that does not go away. ??? Your cough does not get better after 2?3 weeks. ??? Cough medicine does not help, and you are not sleeping well. ??? You have pain that gets worse or is not helped with medicine. ??? You are losing weight and do not know why. ??? You have night sweats. Get help right away if: ??? You cough up blood. ??? You have trouble breathing. ??? Your heart is beating very fast. These symptoms may be an emergency. Get help right away. Call 911. ??? Do not wait to see if the symptoms will go away. ??? Do not drive yourself to the hospital. This information is not intended to replace advice given to you by your health care provider. Make sure you discuss any questions you have with your health care provider. Document Revised: 04/02/2023 Document Reviewed: 04/02/2023 [employer] Patient Education ? 2023 [employer]. Infectious Disease Pharyngitis Pharyngitis is a sore throat (pharynx). This is when there is redness, pain, and swelling in your throat. Most of the time, this condition gets better on its own. In some cases, you may need medicine. What are the causes? An infection from a virus. ??? An infection from bacteria. ??? Allergies. What increases the risk? Being 5?24 years old. ??? Being in crowded environments. These include: ? Daycares. ? Schools. ? Dormitories. ??? Living in a place with cold temperatures outside. ??? Having a weakened disease-fighting (immune) system. What are the signs or symptoms? Symptoms may vary depending on the cause. Common symptoms include: ??? Sore throat. ??? Tiredness (fatigue). ??? Low-grade fever. ??? Stuffy nose. ??? Cough. ??? Headache. Other symptoms may include: ??? Glands in the neck (lymph nodes) that are swollen. ??? Skin rashes. ??? Film on the throat or tonsils. This can be caused by an infection from bacteria. ??? Vomiting. ??? Red, itchy eyes. ??? Loss of appetite. ??? Joint pain and muscle aches. ??? Tonsils that are temporarily bigger than usual (enlarged). How is this treated? Many times, treatment is not needed. This condition usually gets better in 3?4 days without treatment. If the infection is caused by a bacteria, you may be need to take antibiotics. Follow these instructions at home: Medicines ??? Take itgw-dte-tbzyeix and prescription medicines only as told by your doctor. ??? If you were prescribed an antibiotic medicine, take it as told by your doctor. Do not stop taking the antibiotic even if you start to feel better. ??? Use throat lozenges or sprays to soothe your throat as told by your doctor. ??? Children can get pharyngitis. Do not give your child aspirin. Managing pain To help with pain, try: ??? Sipping warm liquids, such as: ? Broth. ? Herbal tea. ? Warm water. ??? Eating or drinking cold or frozen liquids, such as frozen ice pops. ??? Rinsing your mouth (gargle) with a salt water mixture 3?4 times a day or as needed. ? To make salt water, dissolve ??1 tsp (3?6 g) of salt in 1 cup (237 mL) of warm water. ? Do not swa (more content not included)... [facility] 10-11-2023 Evaluation + Plan note Extrac mickie from: Title:ED Note Author:Shanika Griffin PA-C Date :10/11/23 1. Suicide attempt by sam abarca of wrist (X78.9XXA: Intentional self-harm by unspecified sharp object, initial encounter) Orders: bacitracin topical, 10 bruno, Ointment, Topical, Once, Stop date 10/11/23 22:46:00 EST, STAT, Start date 10/11/23 22:46:00 EST Acetaminophen Level BB Draw & Hold CBC w/ Auto Diff Communication Order Comprehensive Metabolic Panel Consult to Mental Health Drug Screen Urine eGFR Ethanol Level Extra Blue Tube Extra SST Tube Salicylate Level [facility]12-19-2022 Hospital Discharge instructions Follow Up Care 08/03/2022 14:27:54 With:Kulwant OCHOA DO, FAM Address: [address] [place] [address]- When:Within 1 Month(s) [facility] 06-27-2022 Hospital Discharge instructions Patient Education 02/09/2022 13:51:07 Budget-Friendly Healthy Eating Budget-Friendly Healthy Eating There are many ways to save money at the grocery store and continue to eat healthy. You can be successful if you: Plan meals according to your budget. Make a grocery list and only purchase food according to your grocery list. Prepare food yourself. What are tips for following this plan? Reading food labels Compare food labels between brand name foods and the store brand. Often the nutritional value is the same, but the store brand is lower cost. Look for products that do not have added sugar, fat, or salt (sodium). These often cost the same but are healthier for you. Products may be labeled as: ?Sugar-free. ?Nonfat. ?Low-fat. ?Sodium-free. ?Low-sodium. Look for lean ground beef labeled as at least 92% lean and 8% fat. Shopping Buy only the items on your grocery list and go only to the areas of the store that have the items on your list. Use coupons only for foods and brands you normally buy. Avoid buying items you wouldn't normally buy simply because they are on sale. Check online and in newspapers for weekly deals. Buy healthy items from the bulk bins when available, such as herbs, spices, flour, pasta, nuts, anddried fruit. Buy fruits and vegetables that are in season. Prices are usually lower on in- season produce. Look at the unit ngo on the ngo tag. Use it to compare different brands and sizes to find out which item is the best deal. Choose healthy items that are often low-cost, such as carrots, potatoes, apples, bananas, and oranges. Dried or canned beans are a low-cost protein source. Buy in bulk and freeze extra food. Items you can buy in bulk include meats, fish, poultry, frozen fruits, and frozen vegetables. Avoid buying wesya-ma-crj foods, such as pre-cut fruits and vegetables and pre-made salads. If possible, shop around to discover where you can find the best prices. Consider other retailers such as dollar stores, larger wholesale stores, local fruit and vegetable [employer] [place], and [employer] markets. Do not shop when you are hungry. If you shop while hungry, it may be hard to stick to your list andbudget. Resist impulse buying. Use your grocery list as your official plan for the week. Buy a variety of vegetables and fruits by purchasing fresh, frozen, and canned items. Look at the top and bottom shelves for deals. Foods at eye level (eye level of an adult or child) are usually more expensive. Be efficient with your time when shopping. The more time you spend at the store, the more money youare likely to spend. To save money when choosing more expensive foods like meats and dairy: ?Choose cheaper cuts of meat, such as bone-in chicken thighs and drumsticks instead of skinless andboneless chicken. When you are ready to prepare the chicken, you can remove the skin yourself to make it healthier. ?Choose lean meats like chicken or turkey instead of beef. ?Choose canned seafood, such as tuna, salmon, or sardines. ?Buy eggs as a low-cost source of protein. ?Buy dried beans and peas, such as lentils, split peas, or kidney beans instead of meats. Dried beans and peas are a good alternative source of protein. ?Buy the larger tubs of yogurt instead of individual-sized containers. Choose water instead of sodas and other sweetened beverages. Avoid buying chips, cookies, and other junk food. These items are usually expensive and not healthy. Cooking Make extra food and freeze the extras in meal-sized containers or in individual portions for fast meals and snacks. Pre-cook on days when you have extra time to prepare meals in advance. You can keep these meals in the fridge or freezer and reheat for a quick meal. When you come home from the grocery store, wash, peel, and cut fruits and vegetables so they are ready to use and eat. This will help reduce food waste. Meal planning Do not eat out or get fast food. Prepare food at home. Make a grocery list and make sure to bring it with you to the store. If you have a smart phone, youcould use your phone to create your shopping list. Plan meals and snacks according to a grocery list and budget you create. Use leftovers in your meal plan for the week. Look for recipes where you can cook once and make enough food for two meals. Include budget-friendly meals like stews, casseroles, and stir-mc dishes. Try some meatless meals or try no cook meals like salads. Make sure that half your plate is filled with fruits or vegetables. Choose from fresh, frozen, or canned fruits and vegetables. If eating canned, remember to rinse them before eating. This will remove any excess salt added for packaging. Summary Eating healthy on a budget is possible if you plan your meals according to your budget, purchase according to your budget and grocery list, and prepare food yourself. Tips for buying more food on a limited budget include buying generic brands, using coupons only forfoods you normally buy, and buying healthy items from the bulk bins when available. Tips for buying cheaper food to replace expensive food include choosing cheaper, lean cuts of meat,and buying dried beans and peas. This information is not intended to replace advice given to you by your health care provider. Make sure you discuss any questions you have with your health care provider. Document Released: 04/05/2015 Document Revised: 08/03/2018 Document Reviewed: 08/03/2018 [employer] Patient Education 2020 [employer] 02/09/2022 13:51:05 Smokeless Tobacco Information, Adult Smokeless Tobacco Information, Adult Tobacco is a leafy plant that contains a chemical (nicotine). Nicotine affects your brain and causes you to become addicted to it. Smokeless tobacco is tobacco that you put in your mouth instead of smoking it. It may also be called chewing tobacco or snuff. Smokeless tobacco is made from the leaves of tobacco plants and comes in many forms, such as: Loose, dry leaves. Plugs or twists. Moist pouches. Dissolving lozenges or strips. Chewing, sucking, or holding the tobacco in your mouth causes your mouth to make more saliva. The saliva mixes with the tobacco, which you swallow or spit out. Using tobacco is harmful to your health. How can smokeless tobacco affect me? All forms of tobacco contain many chemicals that can harm every organ in the body. Using smokeless tobacco increases your risk for: Cancer. Tobacco use is one of the leading causes of cancer. Smokeless tobacco is linked to cancer of the mouth, esophagus, and pancreas. Other long-term health problems, including high blood pressure, heart disease, and stroke. Addiction. complications, if this applies. women who use smokeless tobacco are more likely to have a miscarriage or deliver a baby too early. Mouth and dental problems, such as: ?Bad breath. ?Teeth that look yellow or brown. ?Mouth sores. ?Cracking and bleeding lips. ?Gum recession, gum disease, or tooth decay. ?Lesions on the soft tissues of your mouth (leukoplakia). The benefits of not using smokeless tobacco include: A healthy mind and body. Saving money. You avoid the cost of buying tobacco and the cost of treating illnesses that are caused by tobacco. What actions can I take to quit using tobacco? Ask your health care provider for help to quit using smokeless tobacco. This may involve treatment. These tips may also help you quit: Pick a date to quit. Set a date within the next two weeks. This gives you time to prepare. Write down the reasons why you are quitting. Keep this list in places where you will see it often, such as on your bathroom mirror or in your car or wallet. Identify the people, places, things, and activities that make you want to use smokeless tobacco (triggers). Avoid them. Get rid of any tobacco you have and remove any tobacco smells. To do this: ?Throw away all containers of tobacco at home, at work, and in your car. ?Throw away any other items that you use regularly when you chew tobacco. ?Clean your car and make sure to remove all tobacco-related items. ?Clean your home, including curtains and carpets. Tell your family and friends that you are quitting. Having support can make quitting easier. Chew sugarless gum or sunflower seeds when you want to use smokeless tobacco. Stay positive. Be prepared for cravings. It is common to slip up when you first quit, so take it one day at a time. Stay busy and take care of your body. Get plenty of exercise. Drink enough water to keep your urinepale yellow. Keep track of how many days have passed since you quit. Remembering how long and hard you have worked to quit can help you avoid using smokeless tobacco again. Where to find support Ask your health care provider if there is a local support group for quitting smokeless tobacco. Where to find more information You can learn more about the risks of using smokeless tobacco and the benefits of quitting from these sources: [place] [employer]: www.cancer.org National Cancer [place]: www.cancer.gov Centers for Disease Control and Prevention: www.cdc.gov Contact a health care provider if you have: Trouble quitting smokeless tobacco use on your own. White or other discolored patches in your mouth. Difficulty swallowing. A change in your voice. Unexplained weight loss. Stomach pain, nausea, or vomiting. Summary Smokeless tobacco contains many different chemicals that are known to cause cancer. Nicotine is an addictive chemical in smokeless tobacco that affects your brain. The benefits of not using smokeless tobacco include having a healthy mind and body and saving money. Tell your family and friends that you are quitting. Having support can make quitting easier. Ask your health care provider for help quitting smokeless tobacco. This may involve treatment. This information is not intended to replace advice given to you by your health care provider. Make sure you discuss any questions you have with your health care provider. Document Released: 01/04/2012 Document Revised: 10/09/2019 Document Reviewed: 10/09/2019 [employer] Patient Education 2020 [employer] 02/09/2022 13:51:01 BMI for Adults BMI for Adults Body mass index (BMI) is a number that is calculated from a person's weight and height. BMI may help to estimate how much of a person's weight is composed of fat. BMI can help identify those who may be at higher risk for certain medical problems. How is BMI used with adults? BMI is used as a screening tool to identify possible weight problems. It is used to check whether aperson is obese, overweight, healthy weight, or underweight. How is BMI calculated? BMI measures your weight and compares it to your height. This can be done either in [place] or metric measurements. Note that charts are available to help you find your BMI quickly and easily without having to do these calculations yourself. To calculate your BMI in [place] measurements, your health care provider will: 1.Measure your weight in pounds (lb). 2.Multiply the number of pounds by 703. For example, for a person who weighs 180 lb, multiply that number by 703, which equals 126,540. 3.Measure your height in inches (in). Then multiply that number by itself to get a measurement called inches squared. For example, for a person who is 70 in tall, the inches squared measurement is 70 in x 70 in, which equals 4900 inches squared. 4.Divide the total from Step 2 (number of lb x 703) by the total from Step 3 (inches squared): 126,540 4900 = 25.8. This is your BMI. To calculate your BMI in metric measurements, your health care provider will: 1.Measure your weight in kilograms (kg). 2.Measure your height in meters (m). Then multiply that number by itself to get a measurement called meters squared. For example, for a person who is 1.75 m tall, the meters squared measurement is 1.75 m x 1.75 m, which is equal to 3.1 meters squared. 3.Divide the number of kilograms (your weight) by the meters squared number. In this example: 70 3.1 = 22.6. This is your BMI. How is BMI interpreted? To interpret your results, your health care provider will use BMI charts to identify whether you are underweight, normal weight, overweight, or obese. The following guidelines will be used: Underweight: BMI less than 18.5. Normal weight: BMI between 18.5 and 24.9. Overweight: BMI between 25 and 29.9. Obese: BMI of 30 and above. Please note: Weight includes both fat and muscle, so someone with a muscular build, such as an athlete, may havea BMI that is higher than 24.9. In cases like these, BMI is not an accurate measure of body fat. To determine if excess body fat is the cause of a BMI of 25 or higher, further assessments may needto be done by a health care provider. BMI is usually interpreted in the same way for men and women. Why is BMI a useful tool? BMI is useful in two ways: Identifying a weight problem that may be related to a medical condition, or that may increase the risk for medical problems. Promoting lifestyle and diet changes in order to reach a healthy weight. Summary Body mass index (BMI) is a number that is calculated from a person's weight and height. BMI may help to estimate how much of a person's weight is composed of fat. BMI can help identify those who may be at higher risk for certain medical problems. BMI can be measured using [place]i measurements or metric measurements. To interpret your results, your health care provider will use BMI charts to identify whether you are underweight, normal weight, overweight, or obese. This information is not intended to replace advice given to you by your health care provider. Make sure you discuss any questions you have with your health care provider. Document Released: 04/13/2005 Document Revised: 07/15/2018 Document Reviewed: 06/15/2018 [employer] Patient Education 2020 [employer] 02/09/2022 13:50:59 Distal Biceps Tendon Tear Distal Biceps Tendon Tear The distal biceps tendon is a strong cord of tissue that connects the biceps muscle which is the muscle on the front of the upper arm to a bone (radius) in the elbow. Distal biceps tendon tear is an injury that may include either of the following: A complete tear (rupture) in the tendon, causing the tendon to completely separate from the radius.When this happens, the biceps muscle pulls up (retracts) toward the shoulder. A partial tear in the tendon that causes the tendon to partially separate from the radius. This condition can interfere with your ability to turn your hand palm-up (supination) and bend (flex) your elbow. It is often treated with surgery, and recovery may take 4 8 months. What are the causes? This condition is usually caused by suddenly straightening the elbow while the biceps muscle is tightened (contracted). This could happen, for example, while lifting or carrying a heavy object that suddenly falls or shifts position. What increases the risk? The following factors may make you more likely to develop this condition: Being a man who is 30 50 years old. Smoking. Using steroids. What are the signs or symptoms? Symptoms of this condition may include: A feeling like a snap or a pop in the elbow at the time of injury. Pain, swelling, and bruising in the front of the elbow. Weakness in the arm when doing certain movements, such as: ?Lifting or carrying objects. ?Rotating the forearm, such as when you turn a screwdriver. ?Bending the elbow. A bulge in the upper arm. You may feel this in the front of the arm, the inside of the arm, or both. Limited range of motion of the elbow and forearm. How is this diagnosed? This condition may be diagnosed based on: Your symptoms and medical history. A physical exam. Your health care provider may test your range of motion by having you do arm movements. Tests, such as: ?X-rays. ?MRI. ?Ultrasound. How is this treated? Treatment for this condition may include: Medicines to help relieve pain and inflammation. A splint or brace to immobilize your elbow. Wearing a sling to help rest your arm. Resting from sports and intense physical activity. Surgery to reattach your tendon to your radius. This is the most common treatment. Physical therapy. Follow these instructions at home: If you have a splint, brace, or sling: Wear the splint, brace, or sling as told by your health care provider. Remove it only as told by your health care provider. Loosen the splint, brace, or sling if your fingers tingle, become numb, or turn cold and blue. Keep the splint, brace, or sling clean and dry. Bathing Do not take baths, swim, or use a hot tub until your health care provider approves. Ask your healthcare provider if you may take showers. You may only be allowed to take sponge baths. If you have a splint, brace, or sling that is not waterproof: ?Do not let it get wet. ?Cover it with a watertight covering when you take a bath or shower. Managing pain, stiffness, and swelling If directed, put ice on the injured area: ?Put ice in a plastic bag. ?Place a towel between your skin and the bag. ?Leave the ice on for 20 minutes, 2 3 times a day. If directed, apply heat to the affected area before you exercise or as often as told by your healthcare provider. Use the heat source that your health care provider recommends, such as a moist heat pack or a heating pad. ?Place a towel between your skin and the heat source. ?Leave the heat on for 20 30 minutes. ?Remove the heat if your skin turns bright red. This is especially important if you are unable to feel pain, heat, or cold. You may have a greater risk of getting burned. Move your fingers often to avoid stiffness and to lessen swelling. Raise (elevate) the injured area above the level of your heart while you are sitting or lying down. Activity Return to your normal activities as told by your health care provider. Ask your health care provider what activities are safe for you. Until your health care provider approves: ?Do not lift or carry anything with your injured arm. ?Do not use the affected limb to support your body weight. ?Do not participate in contact sports. Avoid activities that cause pain or make your condition worse. Do exercises as told by your physical therapist or health care provider. General instructions Take yesd-fjx-ojkntqz and prescription medicines only as told by your health care provider. If you have a splint, do not put pressure on any part of the splint until it is fully hardened. This may take several hours. Ask your health care provider when it is safe to drive if you have a splint, brace, or sling on your arm. Do not use any products that contain nicotine or tobacco, such as cigarettes, e- cigarettes, and chewing tobacco. If you need help quitting, ask your health care provider. Keep all follow-up visits as told by your health care provider. This is important. Contact a health care provider if: Your splint or brace causes pain or numbness. Get help right away if: You develop severe pain. You develop numbness or tingling in your hand. Your hand feels unusually cold. Your fingernails turn a dark color, such as blue or ewing. Summary Distal biceps tendon tear is an injury that may involve a complete or partial tear of the tendon. This condition is usually caused by suddenly straightening the elbow while the biceps muscle is tightened. Treatment may include medicines, rest, physical therapy, immobilization, or surgery. This information is not intended to replace advice given to you by your health care provider. Make sure you discuss any questions you have with your health care provider. Document Released: 08/02/2006 Document Revised: 07/05/2019 Document Reviewed: 12/26/2018 [employer] Patient Education 2020 [employer] Follow Up Care 02/09/2022 09:24:18 With:VALENTINE TORRES CNP Address: [address] [place] [id number] When:1 to 2 weeks [facility] 06-27-2022 Evaluation + Plan note Future Scheduled Tests Radiology* US Extremity Non-Vascular Limited Right 02/09/22 [facility] 04-05-2022 Hospital Discharge instructions Follow Up Care 11/18/2021 07:39:35 With:Kulwant OCHOA DO, FAM Address: [address] [place] [phone]- When: only if needed [facility] Evaluation + Plan note No data available for this section [facility] Evaluation + Plan note Future Appointments Appointment Date:08/13/2022 10:40:00 AM Scheduled Provider:Kulwant OCHOA DO Location:[facility] Appointment Type:FM Open [facility] Evaluation note* Diagnosis Onset Date Resolution Status Asthma acute Asthma exacerbation acute Maxillary sinusitis, [facility] Work Phone: Hospital Discharge instructions No data [facility] for this section [facility] data available for this section [facility] Summary Purpose Family History No Family History Records Found Advance Directives No Advanced Directives Records Found Advance Directive Response Recorded Date/ Time Advance Directives No September 1:47am Chief Complaint and Reason for Visit Chief Complaint Cold/Sore throat Reason for Visit Asthma Asthma exacerbation Maxillary sinusitis, acute Additional Source Comments Care Team (unrecognized sect ion and content) Team Status: Active Member Role Status Dates Kulwant Ochoa DO Primary Care Provider Active Team Status: Inactive Member Role Status Dates Kulwant Ochoa DO Primary Care Provider Active Start: June 01, 2024 End: June 01, 2024 GERMAN KayC Attending Provider Active Start: June 01, 2024 End: June 01, 2024 (unrecognized sect ion and content) No Status Records FoundNo Status Records Found INFORMATION SOURCE (unrecogn ized section and content) DATE CREATED AUTHOR 10/19/2023 [facility] DATE CREATED AUTHOR AUTHOR'S ORGANIZ ATION 06/27/2024 [facility] Goals (unrecognized section and content) Goals may be documented in a n alternate section FOR RECORDS PERTAINING TO PATIENTS WHO ARE OR HAVE BEEN ENROLLED IN A CHEMICAL DEPENDENCY/SUBSTANCEABUSE PROGRAM, SOME INFORMATION MAY BE OMITTED. This clinical summary was aggregated from multiple sources. Caution should be exercised in using it in the provision of clinical care. This summary normalizes information from multiple sources, and as a consequence, information in this document may materially change the coding, format and clinical context of patient data. In addition, data may be omitted in some cases. CLINICAL DECISIONS SHOULD BE BASED ON THE PRIMARY CLINICAL RECORDS. [facility]. provides no warranty or guarantee of the accuracy or completeness of information in this document.
== END 2024-06-27 14:38 | disposition home or self-care (01) ==
LOC: LAB 14:39
PROVIDERS: PCP Nurse Practitioner Family; Visit Provider Nurse Practitioner Family
DX: R05.9 Cough, unspecified (principal); R09.89 Other specified symptoms and signs involving the circulatory and respiratory systems; J45.909 Unspecified asthma, uncomplicated
CPT/HCPCS: 71046

== ENCOUNTER 2024-09-29 09:08 | Emergency (ER) | payer OTHER, SELFPAY ==
[2024-09-29 09:18] VITALS: BP 170/88; PULSE 101; TEMP 36.7; O2SAT 96; BMI 27.5
--- NOTE | 2024-09-29 09:24 | XR_ITS ---
The [address] [address] Patient Name: CORNELIUS ROBERTS MRN: [id number] date: 1970 Sex: M Assigned Patient Location: ER Current Patient Location: ER Accession/Order Number: [id number] Exam Date: 09/29/2024 09:38 Report Date: 09/29/2024 09:56 At the request of: FATUMA SOL Procedure: XR knee RT 3V PROCEDURE: XR knee RT 3V HISTORY: Chronic pain right knee COMPARISON: None. FINDINGS: BONES: Tiny periarticular degenerative osteophytes.:No fracture, acute abnormality, or significant arthropathy. SOFT TISSUES:No visible soft tissue swelling. EFFUSION:None visible. OTHER: Negative. XR/XR knee RT 3V IMPRESSION: 1. No appreciable acute abnormality. 2. Minimal degenerative changes. Electronically authenticated by: FRANCOIS CARVALHO Date: 09/29/2024 09:56
--- OUTSIDE RECORDS SUMMARY | 2024-09-29 09:24 | XMS_ITS | CCD ---
Author Organization [facility] Care Team Providers Care Director Public Name Role Phone Kulwant OCHOA Primary Care Physician Sendy Murray I Unavailable Unavailable Kulwant Ochoa Primary Care Unavailable Ty Osborne Admitting Unavailab Peggy Nix Consulting Unavailable Ty Osborne Attending Unavailab Ashley Todd Consulting Unavailable Jnaae Arce Consulting Unavailable Savita Grove Consulting Unavailable [...] Rios Consulting Unavailable Manjula Hussein Consulting Unavailable Aids Pollard Consulting Unavailable Jaquelin Galicia Consulting Unavailable [...] Bee/Wasp/Ant venom; Translations: [Bee Stings] Drug allergy [facility] Medications Current Medications Medication Drug Class(es) Dates Sig (Normalized) Sig (Original) [id number] 200 actuat albuterol 0.09 mg/actuat metered dose inhaler (7 sources) beta2-Adrenergic Agonist Start: 06-01-2024 take 1 puff(s) by inhalation every four to six hours Albuterol Sulfate 90 mcg/actuation HFA aerosol inhaler Active 2 PUFF INHALATION EVERY 4-6 HOURS 8.5 June 01, 2024 9:49am Start: 06-01-2024 End: 06-01-2024 Albuterol Sulfate 90 mcg/act uation HFA aerosol inhaler Discontinued INHALATION May 31, 2024 11:00pm June 01, 2024 9:50am Start: 04-06-2020 take 1 dose by inhal ation every six hours ProAir HFA 90 mcg/inh inhalation aerosol 2 puff(s), Inhalation, q6hr for wheezing, 1 EA, Refill(s) 3, [facility], 165, cm, 04/05/20 9:03:00 EDT, Height/Length Dosing, 77.1, kg, 04/05/20 9:03:00 EDT, Weight Dosing Start Date: 04/06/20 Status: Ordered Albuterol (Eqv-ProAir HFA) 90 mcg/inh inhalation aerosol (4 sources) Start: 08-04-2022 take 2 puff(s) by inhalation every six hours Albuterol (Eqv-ProAir HFA) 90 mcg/inh inhalation aerosol 2 puff(s), Inhalation, q6hr Shortness of breath or wheezing, 6.7 gm, Refill(s) 5, [facility], 165, cm, 08/04/22 9:32:00 EST, Height/Length Dosing, 72.4, kg, 08/04/22 9:32:00 EST, Weight Dosing Start Date: 08/04/22 Status: Ordered Albuterol (Eqv-Proventil HFA) 90 mcg/inh inhalation aerosol (4 sources) Start: 07-30-2021 take 2 puff(s) by inhalation every six hours Albuterol (Eqv-Proventil HFA) 90 mcg/inh inhalation aerosol = 2 puff(s), Inhalation, q6hr, # 6.7 gm, Refills(s) 0, Pharmacy: [facility], 165, cm, 07/30/21 11:09:00 EST, Height/Length Dosing, 73.2, kg, 07/30/21 11:09:00 EST, Weight Dosing Start Date: 07/30/21 Status: Ordered amoxicillin 500 mg oral capsule (1 source) Penicillin-class Antibacterial Start: 05-21-2023 take 1 capsule by mouth every twelve hours amoxicillin 500 mg Cap 500 mg = 1 cap(s), Oral, q12hr, # 20 cap(s), Refills(s) 0, Pharmacy: [facility], 162, cm, 05/21/23 12:44:00 EDT, Height/Length Dosing, 74, kg, 05/21/23 12:44:00 EDT, Weight Dosing Start Date: 05/21/23 Status: Ordered azithromycin 250 mg Tab 5-day Dose Pack (Z-Jordy) (2 sources) Start: 06-23-2024 End: 06-28-2024 azithromycin 250 mg Tab 5-day Dose Pack (Z-Jordy) = 1 packet(s), Oral, As Directed, as directed on package labeling, X 5 day(s), # 6 tab(s), Refills(s) 0, Pharmacy: [facility], 162, cm, 06/23/24 14:38:00 EST, Height/Length Dosing, 69, kg, 06/23/24 14:38:00 EST, Weight Dosing Start Date: 06/23/24 Stop Date: 06/28/24 Status: Ordered cyclobenzaprine hydrochloride 10 mg oral tablet (4 sources) Muscle Relaxant Start: 02-26-2021 take 1 tablet by mouth three times daily as needed for muscle spasms cyclobenzaprine 10 mg Tab 10 mg = 1 tab(s), Oral, TID, PRN for spasm, # 30 tab(s), Refills(s) 0, Pharmacy: [facility], 165, cm, 02/26/21 14:51:00 EDT, Height/Length Dosing, 73.2, kg, 02/26/21 14:51:00 EDT, Weight Dosing Start Date: 02/26/21 Status: Ordered hydroCHLOROthiazide / Lisinopril (6 sources) Thiazide Diuretic, Angiotensin Converting Enzyme Inhibitor Start: 08-04-2022 take 1 tablet by mouth once daily Prinzide 10 mg-12.5 mg oral tablet 1 tab(s), Oral, Daily, 90 tab(s), Refill(s) 3, [facility], 165, cm, 08/04/22 9:32:00 EST, Height/Length [...] mL, Topical, q4hr, 100 mL, Refill(s) 0, [facility], 162, cm, 05/21/23 12:44:00 EDT, Height/Length Dosing, 74, kg, 05/21/23 12:44:00 EDT, Weight Dosing Start Date: 05/21/23 Status: Ordered methylPREDNISolone 4 mg oral tablet (2 sources) Corticosteroid Start: 08-04-2022 End: 08-10-2022 Medrol 4 mg Tab = 1 packet(s), Oral, As Directed, as directed on package labeling, X 6 day(s), # 21 tab(s), Refills(s) 0, Pharmacy: [facility], 165, cm, 08/04/22 9:32:00 EST, Height/Length Dosing, 72.4, kg, 08/04/22 9:32:00 EST, Weight Dosing Start Date: 08/04/22 Stop Date: 08/10/22 Status: Ordered Start: 11-18-2021 End: 11-24-2021 Medrol 4 mg Tab = 1 packet(s ), Oral, As Directed, as directed on package labeling, X 6 day(s), # 21 tab(s), Refills(s) 0, Pharmacy: [facility], 165, cm, 11/18/21 14:22:00 EDT, Height/Length Dosing, 73.7, kg, 11/18/21 14:22:00 EDT, Weight Dosing Start Date: 11/18/21 Stop Date: 11/24/21 Status: Ordered omeprazole 40 mg delayed release oral capsule (3 sources) Proton Pump Inhibitor Start: 07-30-2020 take 1 capsule by mouth twice daily omeprazole 40 mg Cap-DR 40 mg = 1 cap(s), Oral, BID, # 60 cap(s), Refills(s) 2, Pharmacy: [facility], 165, cm, 07/30/20 12:46:00 EST, Height/Length Dosing, 75.8, kg, 07/30/20 12:46:00 EST, Weight Dosing Start Date: 07/30/20 Status: Ordered omeprazole 40 mg Cap-DR (1 source) Start: 07-30-2020 take 1 capsule by mouth twice daily omeprazole 40 mg Cap-DR 40 mg = 1 cap(s), Oral, BID, # 60 cap(s), Refills(s) 2, Pharmacy: [facility], 165, cm, 07/30/20 12:46:00 EST, Height/Length Dosing, 75.8, kg, 07/30/20 12:46:00 EST, Weight Dosing Start Date: 07/30/20 Status: Ordered predniSONE 50 mg oral tablet (4 sources) Start: 06-23-2024 End: 06-28-2024 take 1 tablet by mouth once daily at mealtime predniSONE 50 mg Tab 50 mg = 1 tab(s), Oral, Daily, with food or milk, X 5 day(s), # 5 tab(s), Refills(s) 0, Pharmacy: [facility], 162, cm, 06/23/24 14:38:00 EST, Height/Length Dosing, 69, kg, 06/23/24 14:38:00 EST, Weight Dosing Start Date: 06/23/24 Stop Date: 06/28/24 Status: Ordered Start: 06-01-2024 End: 06-27-2024 take 0.5 tablet by mouth once daily Prednisone 10 mg tablet Discontinued 10 MG PO daily May 31, 2024 11:00pm June 27, 2024 2:05pm Take 40 mg for 2 days, 30 mg for 2 days, 20 mg for 2 days, 10 mg for 2 days, 1/2 tablet for 2 days Ventolin HFA 90 mcg/inh Aerosol-Adpt (2 sources) Start: 06-23-2024 take 2 puff(s) by inhalation once for wheezing Ventolin HFA 90 mcg/inh Aerosol-Adpt 2 puff(s), Inhalation, Once for wheezing, 18 gram, Refill(s) 0, [facility], 162, cm, 06/23/24 14:38:00 EST, Height/Length Dosing, 69, kg, 06/23/24 14:38:00 EST, Weight Dosing Start Date: 06/23/24 Status: Ordered Completed/Discontinued Medications Medication Drug Class(es) Dates Sig (Normalized) Sig (Original) amoxicillin 875 mg / clavulanate 125 mg oral tablet (1 source) Penicillin-class Antibacterial Start: 06-05-2024 End: 06-27-2024 take 1 tablet by mouth twice daily Amoxicillin-Pot Clavulanate 875-125 mg tablet Discontinued 1 TAB PO Twice daily 04 06June 04, 2024 11:00pm June 27, 2024 2:05pm azithromycin 250 mg oral tablet (2 sources) Macrolide Antimicrobial Start: 06-01-2024 End: 06-05-2024 Azithromycin 250 mg tablet Discontinued 0 PO daily 01 18May 31, 2024 11:00pm June 05, 2024 1:16pm Take 2 on day 1 and then take 1 for the next 4 days (days 2-5) Start: 06-01-2024 Azithromycin A ctive 0 PO daily 6 June 01, 2024 12:00am Take 2 on day 1 and then take 1 for the next 4 days (days 2-5) benzonatate 200 mg oral capsule (2 sources) Non-narcotic Antitussive Start: 06-01-2024 End: 06-27-2024 take 1 capsule by mouth three times daily as needed for cough Benzonatate 200 mg capsule Discontinued 200 MG PO Three times daily as needed for cough 30 May 31, 2024 11:00pm June 27, 2024 2:05pm doxepin hydrochloride 10 mg oral capsule (2 sources) Tricyclic Antidepressant Start: 10-17-2023 End: 06-01-2024 take 1 capsule by mouth once daily at bedtime Doxepin 10 mg Capsule Discontinued 10 MG PO Daily at bedtime 15 October 17, 2023 12:00am June 01, 2024 9:22am doxycycline hyclate 100 mg oral tablet (8 sources) Tetracycline-class Drug Start: 10-17-2023 End: 06-01-2024 take 1 tablet by mouth twice daily Doxycycline Hyclate 100 mg Tablet Discontinued 100 MG PO Twice daily 12 October 17, 2023 12:00am June 01, 2024 9:22am Start: 08-04-2022 take 1 capsule by [facility] twice daily doxycycline hyclate 100 mg Cap 100 mg = 1 cap(s), Oral, BID, # 20 cap(s), Refills(s) 0, Pharmacy: [facility], 165, cm, 08/04/22 9:32:00 EST, Height/Length Dosing, 72.4, kg, 08/04/22 9:32:00 EST, Weight Dosing Start Date: 08/04/22 Status: Ordered Start: 11-18-2021 take 1 capsule by [facility] twice daily doxycycline hyclate 100 mg Cap 100 mg = 1 cap(s), Oral, BID, # 20 cap(s), Refills(s) 0, Pharmacy: [facility], 165, cm, 11/18/21 14:22:00 EDT, Height/Length Dosing, 73.7, kg, 11/18/21 14:22:00 EDT, Weight Dosing Start Date: 11/18/21 Status: Ordered escitalopram 10 mg oral tablet (2 sources) Serotonin Reuptake Inhibitor Start: 10-17-2023 End: 06-01-2024 take 1 tablet by mouth once daily Escitalopram Oxalate 10 mg Tablet Discontinued 10 MG PO Daily October 17, 2023 12:00am June 01, 2024 9:23am fenofibrate 145 mg oral tablet (2 sources) Peroxisome Proliferator Receptor alpha Agonist Start: 10-17-2023 End: 06-01-2024 take 1 tablet by mouth once daily in the evening Fenofibrate Nanocrystallized 145 mg Tablet Discontinued 145 MG PO Every evening October 17, 2023 12:00am June 01, 2024 9:23am folic acid 1 mg oral tablet (2 sources) Start: 10-17-2023 End: 06-01-2024 take 1 tablet by mouth once daily Folic Acid 1 mg Tablet Discontinued 1 MG PO Daily October 17, 2023 12:00am June 01, 2024 9:23am ProAir HFA 90 mcg/inh inhalation aerosol (1 source) Start: 04-06-2020 take 1 dose by inhalation every six hours ProAir HFA 90 mcg/inh inhalation aerosol 2 puff(s), Inhalation, q6hr for wheezing, 1 EA, Refill(s) 3, [facility], 165, cm, 04/05/20 9:03:00 EDT, Height/Length Dosing, 77.1, kg, 04/05/20 9:03:00 EDT, Weight Dosing Start Date: 04/06/20 Status: Ordered rOPINIRole 0.5 mg oral tablet (2 sources) Nonergot Dopamine Agonist Start: 10-17-2023 End: 06-01-2024 take 1 tablet by mouth twice daily Ropinirole 0.5 mg Tablet Discontinued 0.5 MG PO Twice daily October 17, 2023 12:00am June 01, 2024 9:23am thiamine 100 mg oral tablet (2 sources) Start: 10-17-2023 End: 06-01-2024 take 1 tablet by mouth twice daily Thiamine Hcl (Vitamin B1) 100 mg Tablet Discontinued 100 MG PO Twice daily October 17, 2023 12:00am June 01, 2024 9:23am Problems Active Problems Problem Classification Problem Date Documented Date Episodic/Chronic Alcohol-related disorders (3 sources) Alcohol abuse, uncomplicated; Translations: [Alcohol abuse] Onset: 10-12-2023 10-26-2023 Chronic Anxiety disorders (3 sources) Generalized anxiety disorder; Translations: [Generalized anxiety disorder] Onset: 10-12-2023 10-26-2023 Chronic Asthma (18 sources) Asthma; Translations: [Exacerbation of asthma] Onset: 06-23-2024 10-27-2013 Chronic Disorders of lipid metabolism (3 sources) Pure hyperglyceridemia; Translations: [Hypertriglyceridemia ] Onset: 10-12-2023 10-26-2023 Chronic Essential hypertension (9 sources) Hypertensive disorder; Translations: [Essential hypertension] Onset: 08-04-2022 05-15-2011 Chronic Fever of unknown origin (1 source) Fever; Translations: [Fever, unspecified] Onset: 06-23-2024 Episodic Headache; including migraine (8 sources) Tension-type headache 02-09-2020 Chronic Mood disorders (3 sources) Major depressive disorder, recurrent severe without psychotic features; Translations: [Severe recurrent major depression without psychotic features] Onset: 10-12-2023 10-26-2023 Chronic Mood disorders (1 source) Mood disorders; Translations: [Depression, unspecified] Onset: 10-12-2023 Open wounds of extremities (3 sources) Laceration without foreign body of left wrist, initial encounter; Translations: [Self inflicted lacerations to wrist] Onset: 10-12-2023 10-26-2023 Episodic Open wounds of extremities (3 sources) Laceration without foreign body of right wrist, initial encounter; Translations: [Self inflicted lacerations to wrist] Onset: 10-12-2023 10-26-2023 Episodic Other circulatory disease (1 source) Elevated blood pressure; Translations: [Elevated blood-pressure reading, without diagnosis of hypertension] 06-01-2024 Episodic Other circulatory disease (1 source) Abnormal chest sounds; Translations: [Other specified symptoms and signs involving the circulatory and respiratory systems] 06-27-2024 Episodic Other circulatory disease (1 source) Elevated blood-pressure reading, without diagnosis of hypertension; Translations: [Elevated blood pressure reading without diagnosis of hypertension] 06-01-2024 Episodic Other circulatory disease (1 source) Other specified symptoms and signs involving the circulatory and respiratory systems; Translations: [Abnormal chest sounds] 06-27-2024 Episodic Other connective tissue disease (8 sources) [...] Muscle and tendon injury 02-09-2022 Episodic Other lower respiratory disease (2 sources) Cough; Translations: [Cough] 06-27-2024 Episodic Other nutritional; endocrine; and metabolic disorders (1 source) Overweight in adulthood with body mass index of 25 or more but less than 30; Translations: [Body mass index (BMI) 26.0-26.9, adult] Onset: 02-09-2022 Episodic Other upper respiratory infections (5 sources) Acute maxillary sinusitis; Translations: [Acute maxillary [...] spondylosis with myelopathy] 11-06-2015 Chronic Substance-related disorders (6 sources) Smoker; Translations: [Other psychoactive substance abuse, [...] asthma Your Care Team Attending Physician - Tonny SALAZAR, Bing Primary Care Physician - MAGALIS, [...] 250 mg Tab 5-day Dose Pack (Z-Jordy)) 1 Packets By Mouth As Directed Cough with fever Wheezing on inspiration Acute pharyngitis Exacerbation of asthma Duration: 5 Days as directed on package labeling Pickup at [facility] New predniSONE (predniSONE 50 mg Tab) 1 Tablets By Mouth Every day Cough with fever Wheezing on inspiration Acute pharyngitis Exacerbation of asthma Duration: 5 Days with food or milk Pickup at [facility] Changed albuterol (Albuterol (Eqv-ProAir HFA) 90 mcg/ inh inhalation aerosol) 2 Puffs Inhalation Every 6 hours as needed for Shortness of breath or wheezing Changed albuterol (Ventolin HFA 90 mcg/ inh Aerosol-Adpt) 2 Puffs Inhalation Once as needed for for wheezing Cough with fever Wheezing on inspiration Acute pharyngitis Exacerbation of asthma Pickup at [facility] Pharmacy Information [facility]: [address] [place], [place] [id number] [phone] Medications and Immunizations Administered Given DuoNeb 2.5 [...] for choosing us for your care. Normal [facility] Family Medicine Office/Clini c Noteon 06-23-2024 Family [...] with voice recognition software. Occasional wrong-word or ???[id number]??? substitutions may have occurred due to the [...] Once for wheezing, 18 gram, Refill(s) 0, [facility], 162, cm, 06/23/24 14:38:00 EST, Height/Length Dosing, 69, kg, 06/23/24 14:38:00 EST, Weight Dosing azithromycin, = 1 packet(s), Oral, As Directed, as directed on package labeling, X 5 day(s), # 6 tab(s), Refills(s) 0, Pharmacy: [facility], 162, cm, 06/23/24 14:38:00 EST, Height/Length Dosing, 69, kg, 06/23/24 14:38:00 EST, Weight Dosing predniSONE, 50 mg = 1 tab(s), Oral, Daily, with food or milk, X 5 day(s), # 5 tab(s), Refills(s) 0, Pharmacy: [facility], 162, cm, 06/23/24 14:38:00 EST, Height/Length [...] viral illn (more content not included)... Normal [facility] Comment on above: Result Comment: Elec tronically Signed By: Tonny SALAZAR, Bing\.br\Date and Time Signed: 06/23/24 20:41 EST Patient Letter FTon 2023 Patient Letter [facility] Patient Letter [facility] [address] [place] [id number] June 23, 2024 CORNELIUS ROBERTS [address] [place] [address] : 1970 Please excuse CORNELIUS ROBERTS from work . Date and/or Time of Absence: From: 06/23/24 To: 06/23/24 May return to work on: 06/24/24 if fever free without use of fever reducing medication and has taken 2 doses of antibiotics. Restrictions: None Comments: Please excuse due to an acute illness. Provider Signature: MARTIN Aguilar Nurse Practitioner [address] [place] [address] [place] [address] Normal [facility] XR Chest 2 Viewson XR Chest 2 [...] mGy = na DAP = na Normal [facility] Influenza virus B Ag [Presen ce] in Upper respiratory specimen by Rapid immunoassayon 06-01-2024 FLUBV Ag IA.rapid Ql (Nph) Influenza virus B Ag [Presence] in Upper respiratory specimen by Rapid immunoassay [facility] No Panel InformationOrdered By: Eleanor Koehler on 06-01-2024 Quick Strep (POC) [facility] Quick Strep (POC) [facility] No Panel Informationon 06-01 Influenza Type A (Rapid) Negative [facility] POC SARS CoV-2 Antigen Negative [facility] EMS Documentationon 10-18-19 EMS Documentation Please click on link to see report Normal [facility] Comment on above: Result Comment: Miss ing Attachment - attachment exceeds size limitation [id number] Can be viewed in source system Triglycerideson 10-16-2023 Triglyceride [Mass/Vol] 159 mg/dL High 35-149 [facility] Comment on above: Result Comment: TRIG ATP III CLASSIFICATION TRIG less than 150 mg/dL Normal TRIG 150-199 mg/dL Borderline high TRIG 200-500 mg/dL High TRIG greater than 500 mg/dL Very high Standard traceable to the Center for Disease Conrtrol and Prevention (CDC) test method. PERFORMED BY: [place] [address] PATHOLOGIST YEAST MAKER VONNIE CHARLES M.D. Performed By: #### T RIG #### [place] [address] [place] A1C with Estimated Average G luon 10-12-2023 Glucose [Mass/Vol] 105 mg/dL Normal [facility] Comment on above: Order Comment: Comme nt ok to use previously drawn blood Result Comment: PERF ORMED BY: [place] [address] PATHOLOGIST YEAST MAKER VONNIE CHARLES M.D. Performed By: #### A 1C [facility] eA #### [address] HbA1c (Bld) [Mass fraction] 5.3 % Normal 4.3-5.6 [facility] Comment on above: Order Comment: Comme nt ok to use previously drawn blood Result Comment: Incr eased risk for diabetes: 5.7 - 6.4 diabetes: >6.4 glycemic control for adults with diabetes: <7.0 Performed By: #### A 1C WT eA #### [place] [address] [place] ECG 12 lead ECGon 10-12-2023 ECG 12 lead ECG [facility] [place] [address] Electrocardiograph Report Signed Patient: Cornelius Roberts MR#: [id number] : 1970 Acct:[id number] Age/Sex: 52 / M ADM Date: 10/12/23 Loc: Room: [address] [place] [address] Type: ADM IN Attending Dr: Ty Osborne [...] ECG No previous ECGs available Confirmed by ROXANNE BECKGEOVANNA ([id number]) on 10/12/2023 3:41:18 PM Referred By: Electronically Signed By:GEOVANNA OLIVEIRA MD [facility] Transcribed By: MUS Signed By Geovanna Oliveira [facility]/12/23 1541 [facility] ED Clinical Summaryon 2023 ED Clinical Summary (Inserted Image. Pia ble to display) [place] [id number] ED Clinical Summary Person Information Name: CORNELIUS ROBERTS [place] Age: 52 Years : 1970 Sex: Male Language: Mozambican PCP: Kulwant OCHOA DO Marital Status: Single [...] 10/12/2023 02:05:29 10/12/2023 02:05:29 10/12/2023 02:05:29 ADDRESS: [address] [place] [address] Josefina [facility] [phone] PHYS DOC NOTES: MEDICAL INFORMATION: Prescriptions Given: [...] DIAGNOSIS: 1:Suicide attempt by cutting of wrist [facility] ED Note-Nursingon 10-12-2023 ED Note-Nursing tDap was given 10/11 at 2338 the med would not sign/verify. I am charting the administration in a note per pharmacy's instructions. Administered IM Left deltoid Lot: [id number] exp: 12/16/2025 mftr : glaxoklinesmith [facility] ED Note-Physicianon 10-12-19 24 ED Note-Physician Basic [...] they called for a welfare check and arthurad found him on the floor with a [...] SST Tube Salicylate Level Medications Administered Given [id number] [F], 10 bruno, Topical ketorolac 30 mg/mL Inj 1 mL, 30 mg, IV Disposition Plan Patient Discharge Condition Guarded Discharge Disposition Transfer to S. Discharge Prescription List Prescriptions No active prescription medications Follow-up No qualifying data available Attestation Patient was treated and evaluated by the Physician Panel Fitter. The attending physician was in the Emergency [...] Beer, 1- (more content not included)... Normal [facility] Comment on above: Result Comment: Elec tronically Signed By: Shanika Griffin PA-C\.br\Date and Time Signed: 10/11/23 23:46 EST\.br\Electronically Co-Signed By: Lion Yan MD\.br\Date and Time Co-Signed: 10/12/23 22:08 EST ED Patient Education Noteon 10-12-2023 ED Patient Education Note Normal [facility] ED Patient Summaryon 024 ED Patient Summary (Inserted Image. Pia ble to display) [place] [id number] Patient Discharge Instructions Person Information Name: CORNELIUS ROBERTS Age: 52 Years Arrival Date: 10/11/2023 19:13:19 Discharge Diagnosis: 1:Suicide attempt by cutting of wrist Primary Care Physician: Kulwant OCHOA DO Provider Information Primary Provider: Lion Yan MD Advanced Lap Maker:None The exam and treatment you received in the Emergency Department were for an urgent problem and are not intended as complete care. It is important that you follow up with a doctor, nurse practitioner, or physician?s research assistant for ongoing care. If your symptoms [...] opioids can be used to help relieve jnuszhjx-fs-yjzfak pain and are often prescribed following a [...] be struggling with addiction, tell your health career technical education instructor and ask for guidance or call SAM[employer]SA?S National Helpline at 8-685-622-JLNN. r Source: [place] Department of Health and Human Services/Center for Disease Control & Prevention [facility] Medications Given: Medication Dos (more content not included)... Normal [facility] ED Traumaon 10-12-2023 ED Trauma [id number] Normal [facility] LDL Cholesterol Measuredon 0 10-12-2023 LDL Cholesterol Measured 39 mg/dL Normal 0-100 [facility] Comment on above: Result Comment: LDL ATP III CLASSIFICATION LDL less than 100 mg/dL Optimal LDL 100-129 mg/dL Near or above optimal LDL 130-159 mg/dL Borderline high LDL 160-189 mg/dL High LDL greater than 189 mg/dL Very high Performed By: #### L DLD, TSH3 wRFLX, LIPID, [id number] #### [facility] [address] [place] [id number] [facility] Lipid Panelon 10-12-2023 Cholesterol [Mass/Vol] 123 mg/dL Low 140-200 [facility] Comment on above: Result Comment: Chol less than 200 mg/dl low risk Chol 201-239 mg/dl borderline risk Chol 240 mg/dl and greater high risk Performed By: #### L DLD, TSH3 wRFLX, LIPID, [id number] #### [facility] [address] Cholesterol in HDL [Mass/Vol] 37 mg/dL Normal 23-92 [facility] Comment on above: Result Comment: HDL CHOL ATP-III CLASSIFICATION Cardiovascular Risk HDL > or equal to 60 mg/dL LOW HDL < 40 mg/dL HIGH Performed By: #### L DLD, TSH3 wRFLX, LIPID, [id number] #### [facility] [address] [place] [address] [facility] Cholesterol.total/Cho lesterol in HDL [Mass ratio] 3.3 {ratio} Normal <5.0 [facility] Comment on above: Performed By: #### L DLD, TSH3 wRFLX, LIPID, [id number] #### [facility] [address] [place] [id number] [facility] LDL Cholesterol,Calculate d Not performed Normal 0-100 [facility] Comment on above: Performed By: #### L DLD, TSH3 wRFLX, LIPID, [id number] #### [facility] [address] [place] [id number] [place] [facility] Triglyceride w/Reflex 570 mg/dL High 0-149 [facility] Comment on above: Result Comment: TRIG ATP [...] By: #### L DLD, TSH3 wRFLX, LIPID, [id number] #### [facility] [address] [place] [address] VLDL CHOLESTEROL 114 mg/dL Normal [facility] Comment on above: Performed By: #### L DLD, TSH3 wRFLX, LIPID, [id number] #### [facility] [address] [place] [address] Outside Recordson 10-12-2023 Outside Records [id number]#1.00TIFF Normal [facility] Thyroid Stim Hormone w/Rflxo n 10-12-2023 Thyroid Stim Hormone w/Rflx 2.83 u[iU]/mL Normal 0.45-5.33 [facility] Comment on above: Performed By: #### L DLD, TSH3 wRFLX, LIPID, [id number] #### [facility] [address] [place] [address] [place] Transfer Documentson 024 Transfer Documents [id number]#1.00TIFF Normal [facility] Vaccinationson 10-12-2023 Vaccinations [id number]#1.00TIFF Normal [facility] Valuables Checkliston 2023 Valuables Checklist [id number]#1.00TIFF Normal [facility] Vitamin D 25 Hydroxy Totalon 10-12-2023 Vitamin D 25 Hydroxy Total 30.5 ng/mL Normal 30-100 [facility] Comment on above: Result Comment: ALLEN MIN D STATUS 25(OH)VITAMIN D RANGE (ng/mL) Deficient <20 Insufficient 20 to <30 Sufficient 30 to 100 Reference: Lenin MF,Darlene NC, Kimberly HAMMOND, et al. Evaluation,treatment, and prevention of vitamin D deficiency; an Endocrine Society clinical practice guideline. JCEM. 2010; 96(7):1911-30. PERFORMED BY: [facility] [address] [place] [address] PATHOLOGIST YEAST MAKER VONNIE CHARLES M.D. Performed By: #### L DLD, TSH3 wRFLX, LIPID, [id number] #### [facility] [address] [place] [address] [facility] Acetamnphn Lvlon 10-11-2023 Acetaminoph Lvl <10 Low 15-30 [facility] Comment on above: Performed By: #### 1 , 1737678, 2081501, 9586559, 93044973, 9480663 ####[facility] [address] [place] [address] BB Draw & Holdon 10-11-2023 BB D&H Sample drawn for Blood Ba Normal [facility] Comment on above: Performed By: #### 1 , 4060517, 3593204, 6659467, 22666852, 4901169 ####[facility] [address] [place] [address] CBC w/ Auto Diffon 4 Basophil Absolute 0.0 E9/L Normal 0.0-0.2 [facility] Comment on above: Performed By: #### 1 , 9845490, 7561414, 7161565, 84958375, 9266880 ####[facility] [address] [place] [address] Basophils/100 WBC (Bld) 0.3 % Normal 0.0-2.0 [facility] Comment on above: Performed By: #### 1 , 8214632, 9140631, 7295527, 38808048, 6807807 ####[place] [address] [place] [address] Eos Absolute 0.1 E9/L Normal 0.0-0.5 [facility] Comment on above: Performed By: #### 1 , , 9873265, 7910835, 36077546, 3655789 ####[place] [address] Eosinophils/100 WBC (Bld) 1.1 % Normal 0.0-8.0 [facility] Comment on above: Performed By: #### 1 , , 9710919, 3870422, 23899484, 8754730 ####[address] [address] Erythrocyte distribution width (RBC) [Ratio] 13.3 % Normal 10.9-14.2 [facility] Comment on above: Performed By: #### 1 , , 9200944, 4936185, 67460425, 1423236 ####[place] [address] Hematocrit (Bld) [Volume fraction] 32.0 % Low 37.7-49.0 [facility] Comment on above: Performed By: #### 1 , , 3980189, 0031927, 37752383, 4802331 ####[place] [address] Hemoglobin (Bld) [Mass/Vol] 10.7 g/dL Low 13.5-17.5 [facility] Comment on above: Performed By: #### 1 , , 5988715, 8736101, 50940415, 3088040 ####[address] [place] [address] Lymph Absolute 1.0 E9/L Normal 1.0-4.0 [facility] Comment on above: Performed By: #### 1 , 1830846, 1679488, 5304011, 88782424, 1938006 ####[address] [place] [address] Lymphocytes/100 WBC (Bld) 8.5 % Low 14.0-50.0 [facility] Comment on above: Performed By: #### 1 , 9184559, 8749631, 9349577, 49942721, 1616425 ####[address] [address] MCH (RBC) [Entitic mass] 29.9 pg Normal 27.0-34.0 [facility] Comment on above: Performed By: #### 1 , , 8605693, 6888869, 72924890, 1842635 ####[address] [address] MCHC (RBC) [Mass/Vol] 33.2 g/dL Normal 31.4-36.0 [facility] Comment on above: Performed By: #### 1 , , 2482581, 1277467, 76807575, 4459083 ####[address] [address] MCV (RBC) [Entitic vol] 90.1 fL Normal 80.0-100.0 [facility] Comment on above: Performed By: #### 1 , , 1540526, 5146067, 66582250, 7388252 ####[address] [address] Pine Absolute 0.7 E9/L Normal 0.2-1.0 [facility] Comment on above: Performed By: #### 1 , 3095217, 6887895, 6277974, 57669575, 8981632 ####[address] [place] [address] Monocytes/100 WBC (Bld) 5.9 % Normal 4.0-14.0 [facility] Comment on above: Performed By: #### 1 , 0565670, 4723101, 5024060, 46428011, 7328408 ####[place] [place] [place] [address] Neutro Absolute 10.1 E9/L High 2.0-7.5 [facility] Comment on above: Performed By: #### 1 , 1298598, 1118437, 4522599, 51005042, 4069487 ####[place] [address] Neutro Auto 84.2 % High 36.0-75.0 [facility] Comment on above: Performed By: #### 1 , 2859296, 6808872, 3391220, 38361827, 3239401 ####[place] [address] Platelet 223.0 E9/L Normal 150.0-500.0 [facility] Comment on above: Performed By: #### 1 , 3608701, 8644489, 3357294, 07563885, 5785500 ####[address] [address] Platelet mean volume (Bld) [Entitic vol] 7.6 fL Normal 6.4-10.8 [facility] Comment on above: Performed By: #### 1 , 8720698, 7880261, 3579744, 77302150, 6155329 ####[place] [address] RBC 3.6 E12/L Low 4.3-5.9 [facility] Comment on above: Performed By: #### 1 , 8737194, 0857052, 6748493, 43387130, 0207835 ####[address] [place] [address] WBC 12.1 E9/L High 4.0-11.0 [facility] Comment on above: Performed By: #### 1 , 2529013, 9400000, 3517553, 25849236, 3788744 ####[facility] [address] [place] [address] CHEMISTRYOrdered By: SYSTEM SYSTEM on 10-11-2023 U [...] 10-11-2023 Albumin [Mass/Vol] 3.3 g/dL Normal 3.3-5.0 [facility] Comment on above: Performed By: #### 1 , 4340674, 8165245, 1047537, 25401661, 2662496 ####[facility] [address] [place] [address] Albumin/Globulin [Mass ratio] 1.7 {ratio} Normal 1.1-2.2 [facility] Comment on above: Performed By: #### 1 , 4433705, 5798809, 7435693, 45138087, 6523664 ####[facility] [address] [place] [address] Alk Phos 41 Int._Unit/L Normal 21-98 [facility] Comment on above: Performed By: #### 1 , 3962616, 0865377, 8739972, 83935614, 6730225 ####[facility] [address] [place] [address] ALT 17 Int._Unit/L Normal 6-46 [facility] Comment on above: Performed By: #### 1 , 9831714, 8126814, 8466192, 88730996, 1912795 ####[facility] [address] [place] [address] Anion gap [Moles/Vol] 11 mmol/L Normal 6-16 [facility] Comment on above: Performed By: #### 1 , 1940676, 6310128, 3623006, 69558979, 5808672 ####[facility] [address] [place] [address] AST 14 Int._Unit/L Normal 5-43 [facility] Comment on above: Performed By: #### 1 , 3728048, 6263309, 5824489, 86496227, 2122950 ####[facility] [address] [place] [address] Bili Total 0.6 mg/dL Normal 0.0-1.1 [facility] Comment on above: Performed By: #### 1 , 4924818, 4767230, 0629609, 43662515, 5306628 ####[facility] [address] [place] [address] BUN/Creat Ratio 21 No Units High 10-20 [facility] Comment on above: Performed By: #### 1 , 1840229, 5820931, 7615096, 12966248, 0450436 ####[place] [address] [place] [address] Calcium [Mass/Vol] 8.0 mg/dL Low 8.9-11.1 [facility] Comment on above: Performed By: #### 1 , 1100203, 8934331, 6649360, 02711751, 4057799 ####[facility] [address] [place] [address] Chloride [Moles/Vol] 107 mmol/L Normal 101-111 [facility] Comment on above: Performed By: #### 1 , , 1855479, 1330366, 67929104, 2202662 ####[facility] [address] [place] [address] CO2 [Moles/Vol] 23 mmol/L Normal 21-31 [facility] Comment on above: Performed By: #### 1 , , 9227144, 7900493, 99761385, 0296293 ####[facility] [address] [place] [address] Creatinine [Mass/Vol] 0.8 mg/dL Normal 0.5-1.3 [facility] Comment on above: Performed By: #### 1 , , 2799345, 8132687, 54844626, 3401798 ####[facility] [address] [place] [address] Globulin (S) [Mass/Vol] 2.0 g/dL Normal 1.4-4.0 [facility] Comment on above: Performed By: #### 1 , , 1676733, 9098426, 01722933, 5982770 ####[facility] [address] [place] [address] Glucose [Mass/Vol] 103 mg/dL Normal 55-199 [facility] Comment on above: Performed By: #### 1 , , 1681211, 4385747, 70596722, 1518416 ####[facility] [address] [place] [address] Potassium [Moles/Vol] 4.5 mmol/L Normal 3.5-5.3 [facility] Comment on above: Performed By: #### 1 , 7952264, 7453254, 6357495, 84502251, 4112261 ####[facility] [address] [place] [address] Protein [Mass/Vol] 5.3 g/dL Low 6.0-7.8 [facility] Comment on above: Performed By: #### 1 9491765, 6755613, 3328138, 7695326, 57431000, 6946975 ####[facility] [address] [place] [address] Sodium [Moles/Vol] 136 mmol/L Normal 135-145 [facility] Comment on above: Performed By: #### 1 2489500, 4078557, 8690647, 8007780, 05380060, 7308263 ####[facility] [address] [place] [address] Urea nitrogen [Mass/Vol] 17 mg/dL Normal 5-21 [facility] Comment on above: Performed By: #### 1 8660918, 5198223, 9591762, 3985005, 15815869, 2588602 ####[facility] [address] [place] [address] Consent for Treatmenton 09-17 Consent for Treatment ..76.2023 [id number]#1.00TIFF Normal [facility] Ethanolon 10-11-2023 Ethanol Lvl <10 Normal <=11 [facility] Comment on above: Performed By: #### 2 112856 ####[facility] [address] [place] [address] Financial Assistance Forms O fficeon 10-11-2023 Financial Assistance Forms Office [id number]#1.00TIFF Normal [facility] HEMATOLOGYOrdered By: SYSTEM SYSTEM on 10-11-2023 Basophil [...] Normal 80.0 - 100.0 fL Remisol Heme Pine Absolute 0.7 E9/L Normal 0.2 - 1.0 [...] NEG Ctl Pass (10/11/23 9:36 PM) Normal [facility] Man Sero Rapid COV Int POS Ctl Pass (10/11/23 9:36 PM) Normal [facility] Man Sero SARS-CoV+SARS-CoV-2 (COVID-19) Ag IA.rapid Ql (Resp) Not Detected 3 (2/26/24 9:36 PM) Normal Not Detected [facility] Man Sero Comment on above: Interpretive Data: Anne meier BD Veritor System for Rapid Detection of SARS-CoV-2 [...] terminated or revoked sooner. Rapid COVID Antigen ([facility])on 10-11-2023 Rapid COV Int NEG Ctl Pass Normal [facility] Comment on above: Performed By: #### 2 [id number] ####[facility] [address] [place] [address] Rapid COV Int POS Ctl Pass Normal [facility] Comment on above: Performed By: #### 2 [id number] ####[facility] [address] [place] [address] SARS-CoV+SARS-CoV-2 (COVID-19) Ag IA.rapid Ql (Resp) Not detected Normal Not Detected [facility] Comment on above: Result Comment: The Unowhy? System for Rapid Detection of SARS-CoV-2 is [...] or revoked sooner. Performed By: #### 2 [id number] ####[facility] [place] [address] Salicylateon 10-11-2023 Salicylate Lvl <4 Low 6-29 [facility] Comment on above: Performed By: #### 1 2945896, 9291511, 4670561, 8128840, 50277884, 1295782 ####[facility] [address] [place] [address] U Drug Screenon 10-11-2023 U Amph Scr Negative Normal NEGATIVE [facility] Comment on above: Performed By: #### 2 738086 ####[facility] [address] [place] [address] U Paz Scr Negative Normal NEGATIVE [facility] Comment on above: Performed By: #### 2 200662 ####[address] [address] U Benzodia Scr Negative Normal NEGATIVE [facility] Comment on above: Performed By: #### 2 700627 ####[address] [address] U Cannab Scr Positive Abnormal NEGATIVE [facility] Comment on above: Result Comment: No C onfirmation Requested by Physician Critical Result Verified by Repeat Analysis Unconfirmed by an Alternate Method Called to Abby Cortez by KD Performed By: #### 2 287009 ####[address] [address] U Cocaine Scr Negative Normal NEGATIVE [facility] Comment on above: Performed By: #### 2 575092 ####[address] [address] U Opiate Scr Positive Abnormal NEGATIVE [facility] Comment on above: Result Comment: Crit ical Result Verified by Repeat Analysis Unconfirmed by an Alternate Method No Confirmation Requested by Physician Called to Jason Cortez by KD Performed By: #### 2 620534 ####[address] [place] [place] [address] U PCP Scr Negative Normal NEGATIVE [facility] Comment on above: Performed By: #### 2 916771 ####[address] [place] [place] [address] UA With Cult Reflexon 2023 Bilirubin Ql (U) Negative Normal Negative [facility] Comment on above: Performed By: #### 1 2642392 ####[facility] [address] [place] [address] Clarity (U) CLEAR Normal Clear [facility] Comment on above: Performed By: #### 1 1239976 ####[facility] [address] [place] [address] Color (U) YELLOW Normal Yellow [facility] Comment on above: Performed By: #### 1 3486250 ####[address] [address] Epithelial cells.squamous LM.HPF (Urine sed) [#/Area] 0-2 Normal 0-2 [facility] Comment on above: Performed By: #### 1 8334074 ####[facility] [address] [place] [address] Glucose Test strip (U) [Mass/Vol] Negative Normal Negative [facility] Comment on above: Performed By: #### 1 1362996 ####[facility] [address] [place] [address] Hemoglobin Ql (U) TRACE Abnormal Negative [facility] Comment on above: Performed By: #### 1 0277801 ####[facility] [address] [place] [address] Ketones (U) [Mass/Vol] Negative Normal Negative [facility] Comment on above: Performed By: #### 1 8809363 ####[facility] [address] [place] [address] [place].plasma/Lithiu m.RBC (Bld) [Mass ratio] 0-3 Normal 0-3 [facility] Comment on above: Performed By: #### 1 9919978 ####[facility] [address] [place] [address] Mucus Ql (Urine sed) TRACE Normal Fish [facility] Comment on above: Performed By: #### 1 4157201 ####[facility] [address] [place] [address] [place] [address] Nitrite Ql (U) Negative Normal Negative [facility] Comment on above: Performed By: #### 1 2889789 ####[address] [address] pH (U) 5.5 [pH] Invalid Interpretation Code 5.0-9.0 [facility] Comment on above: Performed By: #### 1 6589454 ####[address] [address] Protein (U) [Mass/Vol] Negative Normal Negative [facility] Comment on above: Performed By: #### 1 3609322 ####[address] [address] Specific gravity (U) [Rel density] 1.020 Invalid Interpretation Code 1.005-1.030 [facility] Comment on above: Performed By: #### 1 9286976 ####[address] [address] Type of Urine collection method Clean Catch Normal [facility] Comment on above: Performed By: #### 1 2795510 ####[address] [address] Urobilinogen Qn (U) 0.2 {Huseyin'U}/dL Normal 0.0-1.0 [facility] Comment on above: Performed By: #### 1 9973074 ####[address] [address] WBC Auto Ql (U) Negative Normal Negative [facility] Comment on above: Performed By: #### 1 1546362 ####[address] [address] WBC LM.HPF (Urine sed) [#/Area] 0-5 Normal 0-5 [facility] Comment on above: Performed By: #### 1 8798177 ####[address] [address] URINALYSISOrdered By: Robby Slaughter on 10-11-2023 Bilirubin [...] PM) Normal Negative [facility] UA Auto SS [place].plasma/Lithiu m.RBC (Bld) [Mass ratio] 0-3 /HPF Normal [...] [facility] UA Auto SS Urobilinogen Qn (U) 0.3736416 {Huseyin'U}/dL Normal 0.0 - 1.0 EU/dL [facility] UA Auto SS WBC Auto Ql (U) Negative (10/11/23 10:06 PM) Normal Negative [facility] UA Auto SS WBC LM.HPF (Urine sed) [#/Area] 0-5 /HPF Normal 0-5/HPF [facility] UA Auto SS eGFRon 10-11-2023 eGFR 106 mL/min/1.73 m2 Normal >=59 [facility] Comment on above: Order Comment: Order added by Discern Expert. Performed By: #### 1 [id number], 8397557, 5914707, 0215445, 10154305, 8637422 ####[facility] [address] [place] [address] Vital Signs Date Time Vital Sign Value Performing Clinician Facility 06-27-2024 14:00-0500 Body height 162.56 cm [facility] 06-27-2024 14:00-0500 Body mass index (BMI) [Ratio] 27.3 kg/m2 [facility] 06-27-2024 14:00-0500 Body temperature 96.6 [degF] [facility] 06-27-2024 14:00-0500 Body weight 72.12 kg [facility] 06-27-2024 14:00-0500 Diastolic blood pressure 92 mm[Hg] [facility] 06-27-2024 14:00-0500 Heart rate 97 /min [facility] 06-27-2024 14:00-0500 SaO2% (BldA) [Mass fraction] 97 % [facility] 06-27-2024 14:00-0500 Systolic blood pressure 140 mm[Hg] [facility] 06-23-2024 14:36-0500 Blood Pressure Location Leandra Tonny [facility] 06-23-2024 14:36-0500 Body temperature 98.6 [degF] Leandra Tonny [facility] 06-23-2024 14:36-0500 Diastolic blood pressure 74 mm[Hg] Leandra Lancaster [facility] 06-23-2024 14:36-0500 Heart rate 104 /min Leandra Lancaster [facility] 06-23-2024 14:36-0500 SaO2% (BldA) [Mass fraction] 97 % Leandra Lancaster [facility] 06-23-2024 14:36-0500 Systolic blood pressure 120 mm[Hg] Leandra Lancaster [facility] 06-01-2024 10:18-0400 Body height 162.56 cm [facility] 06-01-2024 10:18-0400 Body mass index (BMI) [Ratio] 27.8 kg/m2 [facility] 06-01-2024 10:18-0400 Body temperature 97.3 [degF] [facility] 06-01-2024 10:18-0400 Body weight 73.53 kg [facility] 06-01-2024 10:18-0400 Diastolic blood pressure 92 mm[Hg] [facility] 06-01-2024 10:18-0400 Heart rate 110 /min [facility] 06-01-2024 10:18-0400 Systolic blood pressure 148 mm[Hg] [facility] 10-12-2023 01:30-0500 Diastolic blood pressure 84 mm[Hg] Lion Yuriy [facility] 10-12-2023 01:30-0500 Heart rate 104 /min Lion Yuriy [facility] 10-12-2023 01:30-0500 Hourly Rounding Lion Yuriy [facility] 10-12-2023 01:30-0500 Mean blood pressure 98 mm[Hg] Lion Yuriy [facility] 10-12-2023 01:30-0500 Respiratory rate 11 /min Lion Yuriy [facility] 10-12-2023 01:30-0500 SaO2% (BldA) [Mass fraction] 97 % Lion Yuriy [facility] 10-12-2023 01:30-0500 Systolic blood pressure 127 mm[Hg] Lion Yuriy [facility] 10-12-2023 00:56-0500 Diastolic blood pressure 82 mm[Hg] Lion Yuriy [facility] 10-12-2023 00:56-0500 Heart rate 98 /min Lion Yuriy [facility] 10-12-2023 00:56-0500 Hourly Rounding Lion Yuriy [facility] 10-12-2023 00:56-0500 Mean blood pressure 93 mm[Hg] Lion Yuriy [facility] 10-12-2023 00:56-0500 Respiratory rate 21 /min Lion Yuriy [facility] 10-12-2023 00:56-0500 SaO2% (BldA) [Mass fraction] 99 % Lion Yuriy [facility] 10-12-2023 00:56-0500 Systolic blood pressure 114 mm[Hg] Lion Yuriy [facility] 10-12-2023 00:02-0500 Diastolic blood pressure 86 mm[Hg] Lion Yuriy [facility] 10-12-2023 00:02-0500 Heart rate 112 /min Lion Yuriy [facility] 10-12-2023 00:02-0500 Hourly Rounding Lion Yuriy [facility] 10-12-2023 00:02-0500 Mean blood pressure 101 mm[Hg] Lion Yuriy [facility] 10-12-2023 00:02-0500 Respiratory rate 33 /min Lion Yuriy [facility] 10-12-2023 00:02-0500 SaO2% (BldA) [Mass fraction] 98 % Lion Yuriy [facility] 10-12-2023 00:02-0500 Systolic blood pressure 131 mm[Hg] Lion Yuriy [facility] 10-11-2023 22:07-0500 Body temperature 98.6 [degF] Lion Yuriy [facility] 10-11-2023 19:45-0500 Body temperature 97.88 [degF] Lion Yuriy [facility] 10-11-2023 19:45-0500 Heart rate 100 /min Lion Yuriy [facility] 10-11-2023 19:45-0500 Respiratory rate 21 /min Lion Yuriy [facility] 10-11-2023 19:16-0500 Body temperature 96.62 [degF] Lion Yuriy [facility] 10-11-2023 19:16-0500 Heart rate 122 /min Lion Yuriy [facility] 10-11-2023 19:16-0500 Respiratory rate 16 /min Lion Yuriy [facility] 08-04-2022 09:53-0500 Diastolic blood pressure 100 mm[Hg] Kulwant OCHO[facility] 08-04-2022 09:53-0500 Mean blood pressure 113 mm[Hg] Kulwant OCHO[facility] 08-04-2022 09:53-0500 Systolic blood pressure 140 mm[Hg] Kulwant OCHO[facility] 08-04-2022 09:22-0500 Blood Pressure Location Kulwant OCHOA [facility] 08-04-2022 09:22-0500 Body temperature 98.24 [degF] Kulwant OCHOA [facility] 08-04-2022 09:22-0500 Heart rate 90 /min Kulwant OCHOA [facility] 08-04-2022 09:22-0500 SaO2% (BldA) [Mass fraction] 98 % Kulwant OCHOA [facility] 02-09-2022 12:02-0400 Diastolic blood pressure 92 mm[Hg] VALENTINE SIDELL [facility] 02-09-2022 12:02-0400 Mean blood pressure 109 mm[Hg] VALENTINE SIDELL [facility] 02-09-2022 12:02-0400 Systolic blood pressure 142 mm[Hg] VALENTINE SIDELL [facility] 02-09-2022 11:51-0400 Blood Pressure Location VALENTINE SIDELL [facility] 02-09-2022 11:51-0400 Diastolic blood pressure 98 mm[Hg] VALENTINE SIDELL [facility] 02-09-2022 11:51-0400 Heart rate 80 /min VALENTINE SIDELL [facility] 02-09-2022 11:51-0400 SaO2% (BldA) [Mass fraction] 99 % VALENTINE SIDELL [facility] 02-09-2022 11:51-0400 Systolic blood pressure 142 mm[Hg] VALENTINE TORRES [facility] 11-18-2021 14:40-0400 Diastolic blood pressure 80 mm[Hg] Kulwant OCHOA [facility] 11-18-2021 14:40-0400 Mean blood pressure 97 mm[Hg] Kulwant GABRIELA [facility] 11-18-2021 14:40-0400 Systolic blood pressure 130 mm[Hg] Kulwant OCHOA [facility] 11-18-2021 14:18-0400 Blood Pressure Location Kulawnt OCHOA [facility] 11-18-2021 14:18-0400 Body temperature 98.78 [degF] Kulwant OCHOA [facility] 11-18-2021 14:18-0400 Diastolic blood pressure 90 mm[Hg] Kulwant OCHOA [facility] 11-18-2021 14:18-0400 Heart rate 88 /min Kulwant OCHOA [facility] 11-18-2021 14:18-0400 SaO2% (BldA) [Mass fraction] 98 % Kulwant OCHOA [facility] 11-18-2021 14:18-0400 Systolic blood pressure 146 mm[Hg] Kulwant OCHOA [facility] Encounters Encounter Date Encounter Type Care Provider Facility Start: 06-27-2024 End: 06-27-2024 ambulatory [facility] Work Phone: Start: 06-27-2024 End: 06-27-2024 Patient encounter procedure [facility] Work Phone: Start: 06-23-2024 End: 06-23-2024 ambulatory Leandra Woodstyler Facility:[facility] Start: 06-23-2024 End: 06-23-2024 Patient encounter procedure Leandra Martinez Peggytyler [facility] Start: 06-01-2024 End: 06-01-2024 ambulatory [facility] Work Phone: Start: 06-01-2024 End: 06-01-2024 Patient encounter procedure [facility] Work Phone: Start: 10-12-2023 End: 10-18-2023 Evaluation and management of inpatient Kulwant Ochoa Facility:[facility] Start: 10-11-2023 End: 10-12-2023 Emergency department patient visit Lion Yan [facility] Start: 08-04-2022 End: 08-04-2022 Patient encounter procedure Kulwant OCHOA [facility] [place] Start: 02-27-2022 End: 05-28-2022 Patient encounter procedure Kulwant OCHOA [facility] Start: 02-11-2022 End: 02-11-2022 Patient encounter procedure VALENTINE TORRES [facility] Start: 02-09-2022 End: 02-09-2022 Patient encounter procedure VALENTINE TORRES [facility] Start: 11-18-2021 End: 11-18-2021 Patient encounter procedure Kulwant OCHOA [facility] Procedures Date Procedure Procedure Detail Performing Clinician Start: 06-01-2024 Quick Strep (POC) Start: 10-09-2015 Injection of facet j oint using fluoroscopic guidance Kulwant OCHOA Comment on above: bilateral L3-S1 75% for the first week Appendectomy Kulwant OCHOA groin surgey as a child Johnny OCOHA kidney surgery as a child Dong OCHOA Plan of Treatment Date Care Activity Detail Author XR Chest 2 Views [facility] Immunizations Immunization Date Immunization Notes Care Provider Paulo lugo NEGATED: Highlighted row has not occurred!08-04-2022 influenza virus vaccine, unspecified formulation Kulwant OCHOA [facility] NEGATED: Highlighted row has not occurred!11-27-2019 influenza virus vaccine, live, attenuated, for intranasal use Kulwant OCHOA [facility] Payers Date Payer Category Payer Private Health Insurance [id number] 2023 Self-pay 1970 Unknown [id number] 1970 Unknown [id number] 27 1970 Unknown [id number] 27 Unknown [id number] 31 Unknown Jack tinsley [facility] [id number] Social History Date Type Detail Facility Start: 02-26-2021 End: 10-12-2023 Tobacco smoking status Never smoked tobacco (finding) [facility] Tobacco smoking status Never [facility] Comment on above: denies Sex Assigned At Male [facility] Tobacco [facility] Comment on above: denies Tobacco smoking status No Smokin g Status Entered [facility] Start: 1970 Sex Assigned At Male [facility] Start: 06-23-2024 Tobacco smoking status Ex-smoker (fi nding) [facility] Comment on above: denies Start: 06-27-2024 Sex Male (finding) [facility] Functional Status Date Assessment Result Facility 06-23-2024 Functional Status N/A [facility] 10-11-2023 Functional Status N/A [facility] 08-04-2022 Functional Status N/A [facility] 02-09-2022 Functional Status N/A [facility] Clinical Notes 11-18-2021 to 06-23-2024 Note Date & Type Note Facility 06-23-2024 Hospital Discharge instructions Patient Education 06/23/2024 20:24:57 Pharyngitis, Owkj-am-Gjkp Pharyngitis Pharyngitis is a sore throat (pharynx). [...] Follow these instructions at home: Medicines Take gued-ddz-hiwgxnx and prescription medicines only as told by [...] and water are not available, use hand carpet jack. Do not touch your eyes, nose, or [...] provider. Document Revised: 10/29/2021 Document Reviewed: 10/29/2021 [employer] Patient Education 2023 [employer]. 06/23/2024 20:24:49 Cough, Adult, Gniq-py-Ewox Cough, Adult A cough helps to clear [...] Follow these instructions at home: Medicines Take ipvv-yry-qcynngt and prescription medicines only as told by [...] provider. Document Revised: 04/02/2023 Document Reviewed: 04/02/2023 [employer] Patient Education 2023 [employer] 06/23/2024 20:24:48 Asthma, Adult, Gtam-kl-Stbd Asthma, Adult Asthma is a condition that [...] (dander). Cockroaches. Pollen. Air pollution (like household recycling technician, wood smoke, smog, or chemical odors). What [...] of polyester or cotton. General instructions Take jvkm-whm-ebntmgq and prescription medicines only as told by [...] pollute the air. These may include household recycling technician, wood smoke, smog, or chemical odors. This information is not intended to replace advice given to you by your health care provider. Make sure you discuss any questions you have with your health care provider. Document Revised: 05/11/2022 Document Reviewed: 05/11/2022 [employer] Patient Education 2023 [employer]. [facility] 06-23-2024 Note Patient Education ENT Cough, [...] these instructions at home: Medicines ??? Take yqoa-bnd-entuyog and prescription medicines only as told by [...] provider. Document Revised: 04/02/2023 Document Reviewed: 04/02/2023 [employer] Patient Education ? 2023 [employer]. Infectious Disease Pharyngitis Pharyngitis is a sore [...] these instructions at home: Medicines ??? Take ekxf-efe-wzksldn and prescription medicines only as told by [...] Do not swa (more content not included)... [facility] 06-01-2024 Evaluation note Diagnosis Onset Date Resolution Asthma acute June 01, 2024 10:10am Asthma exacerbation acute Octob er 2023 10:10am Elevated blood pressure reading acute June 01 10:10am Maxillary sinusitis, acute acute June 01 10:10am Abnormal lung sounds acute Nove [facility] 2023 1:42pm Asthma acute June 27, 2024 1:42pm Cough acute June 27, 2024 1:42pm [facility] Work Phone: [phone] 138-521502-26-2024 Evaluation + Plan noteExtracted from: Title:ED Note Author:Shanika Griffin PA-C Date [...] Blue Tube Extra SST Tube Salicylate Level [facility]12-19-2022 Hospital Discharge instructions [facility] 08/03/2022 14:27:54 With:Kulwant OCHOA DO, FAM Address: [address] [place] [address]- When:Within 1 Month(s) [facility] [place] 06-27-2022 Hospital Discharge instructions Patient Education 02/09/2022 [...] frozen fruits, and frozen vegetables. Avoid buying gzgwv-dz-fnq foods, such as pre-cut fruits and vegetables and pre-made salads. If possible, shop around to discover where you can find the best prices. Consider other retailers such as dollar stores, larger wholesale stores, local fruit and vegetable [employer], and [employer] markets. Do not shop when you are [...] 04/05/2015 Document Revised: 08/03/2018 Document Reviewed: 08/03/2018 [employer] Patient Education 2020 [employer]. 02/09/2022 13:51:05 Smokeless Tobacco Information, Adult Smokeless [...] the benefits of quitting from these sources: [place] [employer]: www.cancer.org National Cancer Clever: www.cancer.gov Centers for Disease Control and Prevention: [...] 01/04/2012 Document Revised: 10/09/2019 Document Reviewed: 10/09/2019 [employer] Patient Education 2020 [employer]. 02/09/2022 13:51:01 BMI for Adults BMI for [...] height. This can be done either in [place] ([place] or metric measurements. Note that charts are available to help you find your BMI quickly and easily without having to do these calculations yourself. To calculate your BMI in [place] measurements, your health care provider will: [...] medical problems. BMI can be measured using [place] measurements or metric measurements. To interpret your [...] 04/13/2005 Document Revised: 07/15/2018 Document Reviewed: 06/15/2018 [employer] Patient Education 2020 [employer]. 02/09/2022 13:50:59 Distal Biceps Tendon Tear Distal [...] or health care provider. General instructions Take wfyk-blr-hamyplg and prescription medicines only as told by [...] 08/02/2006 Document Revised: 07/05/2019 Document Reviewed: 12/26/2018 [employer] Patient Education 2020 [employer] Follow Up Care 02/09/2022 09:24:18 With:VALENTINE TORRES CNP Address: [address] [place] [address] When:1 to 2 weeks [facility] 06-27-2022 Evaluation + Plan note Future Scheduled Tests Radiology* US Extremity Non-Vascular Limited Right 02/09/22 [facility] 04-05-2022 Hospital Discharge instructions [facility] 11/18/2021 07:39:35 With:Kulwant OCHOA DO, FAM Address: [address] [place] [address]- When: only if needed [facility] Evaluation + Plan note No data available for this section [facility] Evaluation + Plan note Future Appointments Appointment Date:08/13/2022 10:40:00 AM Scheduled Provider:Kulwant OCHOA DO Location:[facility] Appointment Type:FM Open [facility] Evaluation note* Diagnosis Onset Date Resolution Status Asthma acute Asthma exacerbation acute Maxillary sinusitis, acute a [facility] Work Phone: Hospital Discharge instructions No data available for this section [facility] No data available for this section [facility] Summary Purpose Family History No Family History Records Found Advance Directives No Advanced Directives Records Found Advance Directive Response Recorded Date/ Time Advance Directives No September 1:47am Advance Directive Response Recorded Date/ Time Advance Directives No September 12:47am Chief Complaint and Reason for Visit Chief Complaint Cold/Sore throat Reason for Visit Asthma Asthma exacerbation Maxillary sinusitis, acute Chief Complaint Admit Date Cold/Sore throat June 01, 2024 1 0:10am Sinus Pressure/Coughing June 27, 024 1:42pm Reason for Visit Admit Date Asthma June 01, 2024 1 0:10am Asthma exacerbation June 01, 2024 1 0:10am Elevated blood pressure reading June 01, 2024 10:10am Maxillary sinusitis, acute June 01, 2024 10:10am Abnormal lung sounds June 27, 2024 1:42pm Asthma June 27, 2024 1:42pm Cough June 27, 2024 1:42pm Additional Source Comments Care Team (unrecognized sect ion and content) Team Status: Active Member Role Status Dates Kulwant Ochoa DO Primary Care Provider Active Team Status: Inactive Member Role Status Dates Kulwant Ochoa , Primary Care Provider Active Start: June 01, 2024 End: June 01, 2024 GERMAN Kay Attending Provider Active Start: June 01, 2024 End: June 01, 2024 Team Status: Inactive Member Role Status Dates Kulwant Ochoa DO Primary Care Provider Active Start: June 27, 2024 End: June 27, 2024 GERMAN Kay Attending Provider Active Start: June End: June 27, 2024 (unrecognized sect ion and content) No Status Records FoundNo Status Records Found INFORMATION SOURCE (unrecogn ized section and content) DATE CREATED AUTHOR 10/19/2023 [facility] DATE CREATED AUTHOR AUTHOR'S SADIA ATION 07/01/2024 [facility] Goals (unrecognized section and content) Goals may [...] BE BASED ON THE PRIMARY CLINICAL RECORDS. [employer] provides no warranty or guarantee of the accuracy or completeness of information in this document.
--- NOTE | 2024-09-29 09:25 | ED_ITS ---
HPI HPI - General Adult General Chief complaint: Extremity Problem, Nontraumatic Stated complaint: LOWER EXTREMITY Time Seen by Provider: 09/29/24 09:24 Mode of arrival: walk-in History of Present Illness HPI narrative: Patient is a 53-year-old male who is presenting to the ER with chief complaint of chronic right knee pain has been going on for at least 3 to 6 months. Patient states the pain will come and go. Patient swelling will come and go. Patient will get some swelling above the right patella and also having pain to the right lateral knee intermittently. Patient has looked up information on [employer] and the Internet, patient thinks he might have a right meniscus tear. Patient has no PCP. Patient has not seen orthopedic surgeon. Patient does have history of elevated blood pressure, does not take blood pressure medication. Patient has no new injury. Patient missed work yesterday and today, patient came in for evaluation. Patient has not seen orthopedic surgeon for this right knee pain in the past 6 months. No other acute complaints. All systems are negative except as noted/marked. All systems reviewed and otherwise negative. Nurses note and vital signs reviewed and patient is not hypoxic. General: The patient appears well and in no apparent distress. Patient is resting comfortably on cart. Patient is not toxic, lethargic, or listless Skin: Warm, dry, no pallor noted. There is no rash noted. No petechiae, purpura. Head: Normocephalic, atraumatic Eye: Normal conjunctiva, no drainage, EOMI. PERRL Ears, Nose, Mouth, and Throat: oral mucosa is moist. Nares patent. Mouth without vesicles. Cardiovascular: Regular Rate and Rhythm, no murmur, gallop, rub Respiratory: Patient is in no distress, no accessory muscle use, lungs are clear to auscultation, no wheezing, rales or rhonchi Back: non-tender, GI: no tenderness Musculoskeletal: Patient has full range of motion of all of the extremities except to the right knee. Patient has moderate pain with varus stress to the right knee, mild pain with valgus stress. Negative anterior posterior drawer sign. Minimal tenderness palpation to the right patella. No significant joint effusion noted, no hemarthrosis. Patient is guarded with active range of motion of flexion extension of the right knee, no pain to proximal fibular head. No pain distal third of femur, or the proximal third of the right tibia-fibula. Mild crepitus noted with flexion extension of the right knee. Negative anterior posterior drawer sign. Otherwise no motor, sensory, or focal neurological deficits Neurological: A&O x4, normal speech Psychiatric: Cooperative Related Data Allergies Allergy/AdvReac Type Severity Reaction Status Date / Time bee sting Allergy Severe Hives Uncoded 04/20/24 13:19 Opioid HPI Opioid Management Most Recent Opioid Data: Last Pain Scale 6 09/29/24 09:23 09/29/24 PFSH PFSH Social History Little interest or pleasure in doing things: not at all Feeling down, depressed, or hopeless: not at all Exam Constitutional Vital Signs, click to edit/add: Last Vital Signs Temp 98.1 F 09/29/24 09:18 Pulse 101 H 09/29/24 09:18 Resp 18 09/29/24 09:18 BP 170/88 H 09/29/24 09:18 Pulse Ox 96 09/29/24 09:18 O2 Del Method Room Air 09/29/24 09:18 Course Vital Signs Vital signs: Vital Signs Temperature 98.1 F 09/29/24 09:18 Pulse Rate 101 H 09/29/24 09:18 Respiratory Rate 18 09/29/24 09:18 Blood Pressure 170/88 H 09/29/24 09:18 Pulse Oximetry 96 09/29/24 09:18 Oxygen Delivery Method Room Air 09/29/24 09:18 Temperature 98.1 F 09/29/24 09:18 Pulse Rate 101 H 09/29/24 09:18 Respiratory Rate 18 09/29/24 09:18 Blood Pressure 170/88 H 09/29/24 09:18 Pulse Oximetry 96 09/29/24 09:18 Oxygen Delivery Method Room Air 09/29/24 09:18 Medical Decision Making MDM Narrative Medical decision making narrative: Patient's x-ray shows no acute findings. Education and using ice 20 minutes on, 20 minutes off was discussed. Patient had an appointment made with Dr. West at noon on Wednesday. Patient states the pain has been intermittent for 3 to 6 months. Patient was educated alternating, Motrin for pain. Patient was given a work note. Patient stated that he missed work yesterday today and was asking to miss work tomorrow as well. Patient was told that we can give restrictions and I cannot backdate work notes. Patient was thankful for getting appointment set up for him 12:[address] West so that further testing and therapy may be provided. No question at discharge. Discharge Plan Discharge Stand Alone Forms: Work/School Release Chief Complaint: Extremity Problem, Nontraumatic Clinical Impression: Chronic pain of right knee Patient Disposition: Home, Self-Care Time of Disposition Decision: 10:22 Condition: Fair Print Language: Maori Instructions: Knee Sprain (ED), Knee Pain (ED), P.R.I.C.E. Treatment (ED), Meniscus Tear (ED) Additional Instructions: Use ice 20 minutes on, 20 minutes off. Patient has an appointment at 12:00 on Wednesday, October 02, with Dr. West with orthopedic surgery. Alternate Tylenol and either Motrin, Advil, or ibuprofen every 4 hours to help with pain. Maximum dose of Tylenol is 3000 mg a day. Maximum dose of either Motrin, Advil, or ibuprofen is 2400 mg a day. Education on knee sprain and meniscus tear was given to you for educational purposes only, I am not diagnosing you with that today. Referrals: VANGIE BAEZ [Primary Care Provider] - 1 week Mayank West MD [Physician] - 1 week Discharge Date/Time: 09/29/24 10:43
== END 2024-09-29 10:43 | disposition home or self-care (01) ==
PROVIDERS: Emergency Provider Emergency Medicine; PCP Nurse Practitioner Family
DX: M25.561 Pain in right knee (principal); G89.29 Other chronic pain
CPT/HCPCS: 73562; 99283